=== PATIENT | female | born 1950 | race Hispanic/Latino ===

== ENCOUNTER 2017-10-27 06:57 | Outpatient (CLI) | payer MEDICARE ==
--- NOTE | 2017-10-27 08:43 | Fluoroscopy Report ---
FLUORO UPPER GI WITH AIR WITH KUB INDICATION: Dysphagia oropharyngeal phase. Difficulty swallowing. Food gets stuck about mid chest. COMPARISON: None similar. IMAGES/CINE CLIPS: 34 FINDINGS: Upper GI exam performed. Patient swallowed thick and thin barium and tolerated effervescent granules with some difficulty. Furnace Combination Analyst radiograph demonstrates multilevel spinal degenerative changes, possible bony demineralization and atherosclerotic aortoiliac calcifications. Proximal one third esophageal dilatation noted leading to marked irregularity of the middle third, approximately 10 cm length of the esophagus about the level of the hilum. Some contrast though passes beyond this region into a normal caliber distal third esophagus. Normal GE junction without demonstrable hiatal hernia or gastroesophageal reflux. Contrast passes through into the stomach that demonstrates limited distention and slight exaggerated mucosal thickening. Normal duodenum bulb and the C-loop. CONCLUSION: 1. Abnormal exam with dilated proximal esophagus and approximately 10 cm mid esophageal marked mucosal irregularity/luminal compromise, primarily worrisome for underlying mid esophageal mass/neoplasm versus encasement/invasion from a surrounding hilar/mediastinal mass. Please correlate. Chest CT with contrast and/or endoscopy would be further informative, as warranted. 2. Few other findings, as above. Thank you for the opportunity to participate in this patient's care.
== END 2017-10-27 06:58 | disposition home or self-care (01) ==
LOC: FLUORO 06:57
PROVIDERS: ATTEND Internal Medicine
DX: R13.12 Dysphagia, oropharyngeal phase (principal); M46.90 Unspecified inflammatory spondylopathy, site unspecified; I10 Essential (primary) hypertension
CPT/HCPCS: 74247

== ENCOUNTER 2017-12-23 19:05 | Inpatient (IN) | payer MEDICARE ==
[2017-12-23] MEDS ORDERED: ATROVENT IH ONE ×2 (19:17→20:04)
[2017-12-23] MEDS ORDERED: PROVENTIL IH ONE ×2 (19:18→20:04)
--- NOTE | 2017-12-23 20:11 | Emergency Department Report ---
HPI - General Chief Complaint: Dyspnea/Respdistress Time Seen by Provider: 12/23/17 19:43 - HPI HPI: 67-year-old female presents to the emergency department with a complaint of some abdominal pain and shortness of breath. The patient has been dealing with some shortness of breath, chest pain and back pain for the past month or so and was diagnosed with esophageal cancer and COPD/emphysema about one month ago. The patient had chemotherapy last Tuesday. However the shortness of breath worsened today and the patient this morning developed some lower abdominal pain. She has swelling in the bilateral feet. She denies any current chest pain. She denies any fever, nausea, vomiting but does have a chronic productive cough. The patient's oncologist is Dr. Mishra through [facility] and PCP is Dr Velazquez. She is a former smoker. The patient is fed through a feeding tube. ED Past Medical Hx - Past Medical History Previous Medical History?: Yes Hx Hypertension: Yes (takes calcium channel cedric and CHIQUITA inhibitor) Hx of Cancer: Yes (Esophageal) Hx COPD: Yes Hx HIV: No Additional medical history: OSTEOARTHRITIS - Social History Smoking Status: Former Smoker Substance Use Type: None - Medications Home Medications: Home Medications Medication Instructions Recorded Confirmed Last Taken Type Alendronate Sodium [Fosamax] 70 mg PO QWEEK 03/29/14 03/29/14 03/25/14 20:00 History Amlodipine Bes/Olmesartan Med 1 tab PO DAILY 03/29/14 03/29/14 03/29/14 08:00 History [Jeffery 10-20 mg] Lisinopril 10 mg PO BID 03/29/14 03/29/14 03/29/14 08:00 History Carvedilol [Coreg] 3.125 mg PO 12/23/17 Unknown History HYDROcodone/ACETAMINOPHEN 1 each PO 12/23/17 12/23/17 History [Hydrocodone-Acetamin 10-325 mg] Morphine ER [Ms Contin ER] 30 mg PO 12/23/17 12/23/17 History Sucralfate [Carafate] 1 gm PO 12/23/17 Unknown History ED Review of Systems ROS: Stated complaint: DIFFICULTY BREATHING Other details as noted in HPI Comment: All other systems reviewed and negative Constitutional: denies: chills, fever Eyes: denies: eye pain, eye discharge, vision change ENT: denies: ear pain, throat pain Respiratory: cough, shortness of breath Cardiovascular: edema. denies: chest pain Gastrointestinal: abdominal pain. denies: diarrhea Genitourinary: denies: urgency, dysuria, discharge Musculoskeletal: denies: joint swelling, arthralgia Skin: denies: rash, lesions Neurological: denies: headache, numbness Physical Exam - Physical Exam Vital Signs: Vital Signs 12/23/17 12/23/17 12/23/17 19:16 19:30 19:31 Temperature 97.6 F Pulse Rate 108 H Pulse Rate [ 95 H Anterior] Respiratory 29 H 29 H Rate Respiratory 25 H Rate [Anterior] Blood Pressure 156/79 145/69 Blood Pressure 156/79 [Right] O2 Sat by Pulse 94 94 Oximetry Physical Exam: GENERAL: The patient is well-developed well-nourished. HENT: Normocephalic. Atraumatic. Patient has moist mucous membranes. EYES: Extraocular motions are intact. Pupils equal reactive to light bilaterally. NECK: Supple. Trachea is midline. CHEST/LUNGS: There is some rhonchi heard at the bases. There is some mild wheezing throughout the chest. A productive cough heard during examination. Mild tachypnea but no accessory muscle use. There is no respiratory distress noted. HEART/CARDIOVASCULAR: Regular. There is mild tachycardia. There is no murmur. ABDOMEN: Abdomen is soft, nontender. Patient has normal bowel sounds. There is no abdominal distention. SKIN: Skin is warm and dry. There is some nonpitting swelling to the bilateral feet. NEURO: The patient is awake, alert, and oriented. The patient is cooperative. The patient has no focal neurologic deficits. The patient has normal speech. MUSCULOSKELETAL: There is no tenderness or deformity. There is no limitation range of motion. There is no evidence of acute injury. ED Course Vital Signs 12/23/17 12/23/17 12/23/17 19:16 19:30 19:31 Temperature 97.6 F Pulse Rate 108 H Pulse Rate [ 95 H Anterior] Respiratory 29 H 29 H Rate Respiratory 25 H Rate [Anterior] Blood Pressure 156/79 145/69 Blood Pressure 156/79 [Right] O2 Sat by Pulse 94 94 Oximetry ED Medical Decision Making - Lab Data Result diagrams: 12/23/17 20:03 12/23/17 20:03 - EKG Data -: EKG Interpreted by Me EKG shows normal: sinus rhythm, axis, intervals, QRS complexes (Q waves to the septal leads), ST-T waves Rate: tachycardia (103 bpm) - EKG Data When compared to previous EKG there are: previous EKG unavailable Interpretation: other (sinus tachycardia at 103 bpm, Q waves to the septal leads ) - Radiology Data Radiology results: report reviewed, image reviewed interpreted by me: X-ray shows the esophageal stent in place. There is an infiltrate to the right lower lobe concerning for pneumonia. EXAM: CT ABDOMEN PELVIS WO CON HISTORY: abd pain TECHNIQUE: Routine axial imaging was obtained of the abdomen and pelvis without oral or IV contrast. Sagittal and coronal reconstructions were reviewed. FINDINGS: The study is limited without IV contrast. There are extensive infiltrates involving the right lower lobe and right middle lobe with bilateral pleural effusions. There is a stent in the distal esophagus. There is [id number] ascites. The liver appears mildly enlarged. The gallbladder and biliary tree appear normal. The pancreas is not well seen. The spleen and adrenal glands appear normal. The kidneys show no evidence of stones or hydronephrosis. There calcification of the abdominal aorta. The bowel loops are not distended. There is radiopaque material in the colon which is of uncertain etiology. The bladder is distended. The uterus appears normal. The appendix is not seen. The skeletal structures reveal arthritic changes lumbar spine. There also a gastrostomy tube in good position in the stomach. IMPRESSION: Extensive pneumonia involving the right lower lobe and right middle lobe with bilateral pleural effusions. Ascites. No definite acute process in the abdomen and pelvis. Distended urinary bladder. Arthritic changes in the lumbar spine. Transcribed By: RB Dictated By: CORY MURRAY MD Electronically Authenticated By: CORY MURRAY MD Signed Date/Time: 12/24/17 0024 - Medical Decision Making This patient presents with worsening shortness of breath and some abdominal pain that has since improved or resolved. Patient does have some mild hypoxia upon arrival but does have a recent diagnosis of COPD/emphysema. She was placed on oxygen via nasal cannula and given a long breathing treatment with some improvement. Lung sounds show rhonchi at the bases and some wheezing throughout the lungs. Blood culture sent and the patient was started on antibiotics. X-ray of the chest shows right lower lobe infiltrate concerning for pneumonia. The patient is articulate and Lovenox injections twice daily and therefore she was low suspicion for pulmonary embolism. A CT of the abdomen and pelvis was later done that shows extensive right lower and middle lobe pneumonia with some bilateral pleural effusions. There is some mild ascites but no definite or acute process of the abdomen or pelvis. Patient has elevated troponin level. The first one was 0.031 and she was given aspirin. The second troponin came back at 0.087 and I have added a cardiology consultation regarding her elevated troponin. The patient was accepted for admission by the hospitalist, Dr. Baker. - Differential Diagnosis pneumonia, COPD exacerbation, UT, malignancy Critical Care Time: No Critical care attestation.: If time is entered above; I have spent that time in minutes in the direct care of this critically ill patient, excluding procedure time. ED Disposition Clinical Impression: Elevated troponin Dyspnea Qualifiers: Dyspnea type: shortness of breath Qualified Code(s): R06.02 - Shortness of breath; R06.00 - Dyspnea, unspecified; R06.01 - Orthopnea Pneumonia Qualifiers: Pneumonia type: due to unspecified organism Laterality: right Lung location: lower lobe of lung Qualified Code(s): J18.1 - Lobar pneumonia, unspecified organism Leukocytosis Qualifiers: Leukocytosis type: unspecified Qualified Code(s): D72.829 - Elevated white blood cell count, unspecified Anemia Qualifiers: Anemia type: unspecified type Qualified Code(s): D64.9 - Anemia, unspecified Disposition: OP ADMIT IP TO THIS HOSP Is pt being admited?: Yes Condition: Serious Time of Disposition: 00:55
[2017-12-23 20:24] LABS: INR 1.01 (0.87-1.13)
[2017-12-23 20:25] LABS: Partial Thromboplastin Time 31.3 Sec. (24.2-36.6)
[2017-12-23 20:29] LABS: Alanine Aminotransferase 28 units/L (7-56); Albumin 2.4 g/dL (3.9-5); BUN/Creatinine Ratio 55; Blood Urea Nitrogen 11 mg/dL (7-17); Calcium 7.6 mg/dL (8.4-10.2); Hemolysis Index 0
--- NOTE | 2017-12-23 21:04 | XRay Report ---
FINAL REPORT PROCEDURE: XR CHEST 1V AP TECHNIQUE: Chest radiograph anteroposterior view. CPT 92318 HISTORY: Chest Pain COMPARISON: No prior studies are available for comparison. FINDINGS: Heart: Mild enlargement. Mediastinum/Vessels: Esophageal stent in the mediastinum. Lungs/Pleural space: Right lower lung airspace consolidation. Small left pleural effusion. Bony thorax: No acute osseous abnormality. Prior right rib fractures. Life support devices: Port on the right extends to the mid superior vena cava.. IMPRESSION: Right lower lung infiltrate.
[2017-12-23 21:11] LABS: HDL Cholesterol 27 mg/dL (40-59); LDL Cholesterol,Direct 52 mg/dL (50-130)
[2017-12-23 21:12] LABS: Hematocrit 27.2 % (30.3-42.9); Hemoglobin 9.2 gm/dl (10.1-14.3); Mean Corpuscular HGB Conc 34 % (30-34); Mean Corpuscular Hemoglobin 31 pg (28-32); Mean Corpuscular Volume 92 fl (79-97); Platelet Count 359 K/mm3 (140-440); Red Blood Count 2.96 M/mm3 (3.65-5.03)
[2017-12-23] MEDS ORDERED: BABY ASPIRIN PO ONE (21:25)
[2017-12-23] MEDS ORDERED: LEVAQUIN 750MG/150ML 750 MG/150 ML BAG IV ONE (21:25)
[2017-12-23 21:45] LABS: Basophils % (Manual) 0 % (0.0-1.8); Eosinophils % (Manual) 0 % (0.0-4.3); RBC Morphology Normal; Total Cells Counted 100
[2017-12-23] MEDS ORDERED: PERCOCET 5/325 ONE (22:20)
[2017-12-23] MEDS ORDERED: PERCOCET 5/325 PO ONE (22:20)
[2017-12-23] MEDS ORDERED: NORCO 10/325 ONE (22:43)
[2017-12-23] MEDS ORDERED: NORCO 10/325 FEEDTUBE ONE (22:43)
[2017-12-23] MEDS ORDERED: SODIUM CHLORIDE FLUSH SYRINGE 10 ML IV PRN (22:46)
[2017-12-23] MEDS ORDERED: TYLENOL PO PRN (22:46)
[2017-12-23] MEDS ORDERED: ZOFRAN IV PRN (22:46)
[2017-12-23] MEDS ORDERED: APRESOLINE IV PRN (22:51)
--- NOTE | 2017-12-23 22:53 | History and Physical Report ---
History of Present Illness Date of examination: 12/23/17 History of present illness: This is a 58-year-old woman with a history of esophageal cancer, COPD, hypertension, GERD discussed emergency room with complaints of shortness of breath that started on Tuesday, cough productive of brown phlegm. She also complaining of abdominal pain in the lower abdomen which she described as a heavy sensation, constant, intensity/10, no radiation, she can identify exacerbating or relieving factors Review of systems Constitutional: no weight loss, chills, fever Ears, eyes, nose, mouth and throat: no nasal congestion, no nasal discharge, no sinus pressure, no vision change, no red eye. Neck: No neck pain or rigidity. Cardiovascular: no chest pain, palpitations Respiratory: no cough, shortness of breath Gastrointestinal: no hematochezia Genitourinary : no frequency , no hematuria Musculoskeletal: no joint swelling or muscle ache Integumentary: no rash, no pruritis Neurological: no parathesias, no numbness, no focal weakness Endocrine: no cold or heat intolerance, no polyuria or polydipsia Hematologic/Lymphatic: no easy bruising, no easy bleeding, no gland swelling Allergic/Immunologic: no urticaria, no angioedema. PAST MEDICAL HISTORY: esophageal cancer, COPD, hypertension, GERD PAST SURGICAL HISTORY: none SOCIAL HISTORY: No alcohol, no drugs, tobacco FAMILY HISTORY: Hypertension Medications and Allergies Allergies Allergy/AdvReac Type Severity Reaction Status Date / Time No Known Allergies Allergy Verified 03/29/14 11:00 Home Medications Medication Instructions Recorded Confirmed Last Taken Type Alendronate Sodium [Fosamax] 70 mg PO QWEEK 03/29/14 03/29/14 03/25/14 20:00 History Amlodipine Bes/Olmesartan Med 1 tab PO DAILY 03/29/14 03/29/14 03/29/14 08:00 History [Jeffery 10-20 mg] Lisinopril 10 mg PO BID 03/29/14 03/29/14 03/29/14 08:00 History Carvedilol [Coreg] 3.125 mg PO 12/23/17 Unknown History HYDROcodone/ACETAMINOPHEN 1 each PO 12/23/17 12/23/17 History [Hydrocodone-Acetamin 10-325 mg] Morphine ER [Ms Contin ER] 30 mg PO 12/23/17 12/23/17 History Sucralfate [Carafate] 1 gm PO 12/23/17 Unknown History Active Meds: Active Medications Acetaminophen (Tylenol) 650 mg PO Q4H PRN PRN Reason: Pain MILD(1-3)/Fever >100.5/MORALES Albuterol (Proventil) 2.5 mg IH Q3HRT PRN PRN Reason: Shortness Of Breath Hydralazine HCl (Apresoline) 5 mg IV Q6HR PRN PRN Reason: Hypertension Levofloxacin/Dextrose (Levaquin 750mg/150ml) 750 mg in 150 mls @ 100 mls/hr IV ONCE ONE Stop: 12/23/17 22:54 Last Admin: 12/23/17 22:47 Dose: 100 mls/hr Sodium Chloride (Nacl 0.9% 1000 Ml) 1,000 mls @ 100 mls/hr IV DIRECT ELDA Ondansetron HCl (Zofran) 4 mg IV Q4H PRN PRN Reason: Nausea And Vomiting Sodium Chloride (Sodium Chloride Flush Syringe 10 Ml) 10 ml IV BID ELDA Sodium Chloride (Sodium Chloride Flush Syringe 10 Ml) 10 ml IV PRN PRN PRN Reason: LINE FLUSH Exam - Physical Exam Narrative exam: Gen. appearance: Patient lying in bed, no apparent distress HEENT: Normocephalic, atraumatic, pupils equally round and reactive to light, extraocular movement intact, and no sclericterus,. No JVD or thyromegaly or nodule,neck supple, no carotid bruit ,mucous membranes moist, no exudate or erythema Heart: S1, S2, regular rate and rhythm Lungs: Clear bilaterally, breathing comfortable Abdomen: Positive bowel sounds, non-tender, nondistended, no organomegaly Extremity:no edema cyanosis, clubbing Skin: no rash, dry, warm Neuro: Oriented 3, cranial nerves II-12 intact, speech is fluent, motor and sensory intact - Constitutional Vitals: Temp Pulse Resp BP Pulse Ox 97.6 F 86 18 156/79 94 12/23/17 19:31 12/23/17 21:04 12/23/17 21:04 12/23/17 19:31 12/23/17 19:31 Results - Labs CBC & Chem 7: 12/23/17 20:03 12/23/17 20:03 Labs: Abnormal lab results 12/23/17 12/23/17 Range/Units 20:03 20:03 WBC 26.0 H (4.5-11.0) K/mm3 RBC 2.96 L (3.65-5.03) M/mm3 Hgb 9.2 L (10.1-14.3) gm/dl Hct 27.2 L (30.3-42.9) % Seg Neuts % (Manual) 97.0 H (40.0-70.0) % Lymphocytes % (Manual) 2.0 L (13.4-35.0) % Seg Neutrophils # Man 25.2 H (1.8-7.7) K/mm3 Lymphocytes # (Manual) 0.5 L (1.2-5.4) K/mm3 Sodium 122 L (137-145) mmol/L Chloride 86.1 L (98-107) mmol/L Creatinine 0.2 L (0.7-1.2) mg/dL Glucose 137 H (65-100) mg/dL Calcium 7.6 L (8.4-10.2) mg/dL Troponin T 0.031 H (0.00-0.029) ng/mL Total Protein 5.2 L (6.3-8.2) g/dL Albumin 2.4 L (3.9-5) g/dL HDL Cholesterol 27 L (40-59) mg/dL - Imaging and Cardiology Chest x-ray: report reviewed Assessment and Plan Assessment Sepsis Pneumonia Abdominal pain Abnormal cardiac enzymes Hyponatremia Hypertension COPD History of IJ clot History of esophageal cancer Plan Admit to medicine started IV fluid, Levaquin, follow cultures Check cardiac enzymes, CAT scan abdomen and pelvis Follow sodium level DVT prophylaxis
[2017-12-23] MEDS ORDERED: NORCO 10/325 PO PRN (23:45)
[2017-12-23 23:53] LABS: Creatine Kinase MB 3.2 ng/mL (0.0-4.0)
--- NOTE | 2017-12-24 00:26 | Cat Scan Report ---
FINAL REPORT EXAM: CT ABDOMEN PELVIS WO CON HISTORY: abd pain TECHNIQUE: Routine axial imaging was obtained of the abdomen and pelvis without oral or IV contrast. Sagittal and coronal reconstructions were reviewed. FINDINGS: The study is limited without IV contrast. There are extensive infiltrates involving the right lower lobe and right middle lobe with bilateral pleural effusions. There is a stent in the distal esophagus. There is [id number] ascites. The liver appears mildly enlarged. The gallbladder and biliary tree appear normal. The pancreas is not well seen. The spleen and adrenal glands appear normal. The kidneys show no evidence of stones or hydronephrosis. There calcification of the abdominal aorta. The bowel loops are not distended. There is radiopaque material in the colon which is of uncertain etiology. The bladder is distended. The uterus appears normal. The appendix is not seen. The skeletal structures reveal arthritic changes lumbar spine. There also a gastrostomy tube in good position in the stomach. IMPRESSION: Extensive pneumonia involving the right lower lobe and right middle lobe with bilateral pleural effusions. Ascites. No definite acute process in the abdomen and pelvis. Distended urinary bladder. Arthritic changes in the lumbar spine.
[2017-12-24] MEDS: COREG PO SCH ×3 (01:38→22:23)
[2017-12-24] MEDS: MS CONTIN ER PO SCH ×3 (01:38→22:23)
[2017-12-24] MEDS: NACL 0.9% 1000 ML 1,000 ML IV SCH (01:38)
[2017-12-24] MEDS: PROVENTIL IH PRN ×2 (02:28→23:30)
[2017-12-24 07:32] LABS: Hematocrit 31.3 % (30.3-42.9); Hemoglobin 10.3 gm/dl (10.1-14.3); Mean Corpuscular HGB Conc 33 % (30-34); Mean Corpuscular Hemoglobin 30 pg (28-32); Mean Corpuscular Volume 92 fl (79-97); Platelet Count 367 K/mm3 (140-440); Red Blood Count 3.41 M/mm3 (3.65-5.03); Red Cell Distribution Width 14.9 % (13.2-15.2)
[2017-12-24 07:51] LABS: BUN/Creatinine Ratio 50; Blood Urea Nitrogen 10 mg/dL (7-17); Calcium 8.2 mg/dL (8.4-10.2); Hemolysis Index 0
[2017-12-24 07:56] LABS: Creatine Kinase MB 3.7 ng/mL (0.0-4.0)
[2017-12-24] MEDS: DUONEB *Not for PRN Use IH SCH ×4 (10:17→19:53)
[2017-12-24 10:31] LABS: Basophils % (Manual) 0 % (0.0-1.8); Eosinophils % (Manual) 0 % (0.0-4.3); Monocytes % (Manual) 0 % (0.0-7.3); Total Cells Counted 100
[2017-12-24 10:32] LABS: Platelet Estimate Consistent w Auto; RBC Morphology Normal
[2017-12-24] MEDS: ZESTRIL PO SCH ×2 (11:17→22:23)
--- NOTE | 2017-12-24 11:25 | Consultation ---
History of Present Illness Consult date: 12/24/17 Requesting physician: COURTNEY LIND Consult reason: elevated troponin History of present illness: The patient was diagnosed with advanced esophageal cancer about 4 weeks ago. She recently commenced chemotherapy. Yesterday, she developed progressive shortness of breath associated with cough productive of brownish sputum. She denies chest pain. Her chest x-ray revealed right lower lobe infiltrate. Troponin is mildly elevated. Past History Past Medical History: cancer (advanced esophageal cancer), COPD, hypertension Past Surgical History: No surgical history Social history: , other (social drinking). denies: smoking Family history: denies: CAD Medications and Allergies Allergies Allergy/AdvReac Type Severity Reaction Status Date / Time No Known Allergies Allergy Verified 03/29/14 11:00 Home Medications Medication Instructions Recorded Confirmed Last Taken Type Alendronate Sodium [Fosamax] 70 mg PO QWEEK 03/29/14 03/29/14 03/25/14 20:00 History Amlodipine Bes/Olmesartan Med 1 tab PO DAILY 03/29/14 03/29/14 03/29/14 08:00 History [Jeffery 10-20 mg] Lisinopril 10 mg PO BID 03/29/14 03/29/14 03/29/14 08:00 History Carvedilol [Coreg] 3.125 mg PO 12/23/17 Unknown History HYDROcodone/ACETAMINOPHEN 1 each PO 12/23/17 12/23/17 History [Hydrocodone-Acetamin 10-325 mg] Morphine ER [Ms Contin ER] 30 mg PO 12/23/17 12/23/17 History Sucralfate [Carafate] 1 gm PO 12/23/17 Unknown History Enoxaparin [Lovenox] 40 mg SQ Q12HR 12/24/17 12/24/17 2 Days Ago History ~12/22/17 Active Meds: Active Medications Acetaminophen (Tylenol) 650 mg PO Q4H PRN PRN Reason: Pain MILD(1-3)/Fever >100.5/MORALES Albuterol (Proventil) 2.5 mg IH Q3HRT PRN PRN Reason: Shortness Of Breath Last Admin: 12/24/17 02:28 Dose: 2.5 mg Albuterol/Ipratropium (Duoneb *Not For Prn Use*) 1 ampul IH QIDRT ELDA Last Admin: 12/24/17 10:17 Dose: 1 ampul Carvedilol (Coreg) 3.125 mg PO Q12HR [facility] Last Admin: 12/24/17 01:38 Dose: 3.125 mg Hydralazine HCl (Apresoline) 5 mg IV Q6HR PRN PRN Reason: Hypertension Sodium Chloride (Nacl 0.9% 1000 Ml) 1,000 mls @ 75 mls/hr IV DIRECT [facility] Last Admin: 12/24/17 01:38 Dose: 75 mls/hr Lisinopril (Zestril) 10 mg PO BID [facility] Morphine Sulfate (Ms Contin Er) 30 mg PO Q12HR [facility] Last Admin: 12/24/17 01:38 Dose: 30 mg Ondansetron HCl (Zofran) 4 mg IV Q4H PRN PRN Reason: Nausea And Vomiting Sodium Chloride (Sodium Chloride Flush Syringe 10 Ml) 10 ml IV BID [facility] Sodium Chloride (Sodium Chloride Flush Syringe 10 Ml) 10 ml IV PRN PRN PRN Reason: LINE FLUSH Review of Systems Constitutional: no fever, no chills Ears, nose, mouth and throat: no ear pain, no ear discharge, no sore throat Cardiovascular: shortness of breath, no chest pain, no palpitations Respiratory: cough with sputum, shortness of breath Gastrointestinal: no abdominal pain, no nausea, no vomiting, no diarrhea, no constipation Genitourinary Female: no dysuria, no urinary frequency Rectal: no pain, no bleeding Musculoskeletal: no neck stiffness, no neck pain, no myalgias Integumentary: no rash, no pruritis Neurological: no weakness, no parathesias, no headaches Endocrine: no cold intolerance, no heat intolerance Hematologic/Lymphatic: no easy bruising, no easy bleeding Allergic/Immunologic: wheezing, no urticaria Physical Examination Vital Signs Last Vital Signs Temp 98.5 F 12/24/17 08:11 Pulse 88 12/24/17 10:23 Resp 18 12/24/17 10:23 BP 138/62 12/24/17 08:11 Pulse Ox 94 12/24/17 09:51 General appearance: mild distress HEENT: Positive: EOMI, Normocephaly, Mucus Membranes Moist Neck: Positive: neck supple, trachea midline Cardiac: Positive: Reg Rate and Rhythm, S1/S2 Lungs: Positive: Wheezes, Rhonchi Neuro: Positive: Grossly Intact Abdomen: Positive: Soft, Active Bowel Sounds. Negative: Tender Skin: Positive: Clear. Negative: Rash Extremities: Present: +1 Edema (bilateral leg edenma) Results 12/24/17 06:58 12/24/17 06:58 Cardiac Enzymes 12/23/17 12/23/17 12/24/17 Range/Units 20:03 23:09 06:58 AST 16 (5-40) units/L CK-MB (CK-2) 3.2 3.7 (0.0-4.0) ng/mL Coagulation 12/23/17 Range/Units 20:03 PT 13.8 (12.2-14.9) Sec. INR 1.01 (0.87-1.13) APTT 31.3 (24.2-36.6) Sec. Lipids 12/23/17 Range/Units 20:03 Triglycerides 83 (2-149) mg/dL Cholesterol 92 (50-199) mg/dL HDL Cholesterol 27 L (40-59) mg/dL Cholesterol/HDL Ratio 3.40 % CBC 12/23/17 12/24/17 Range/Units 20:03 06:58 WBC 26.0 H 23.3 H (4.5-11.0) K/mm3 RBC 2.96 L 3.41 L (3.65-5.03) M/mm3 Hgb 9.2 L 10.3 (10.1-14.3) gm/dl Hct 27.2 L 31.3 (30.3-42.9) % Plt Count 359 367 (140-440) K/mm3 Comprehensive Metabolic Panel 12/23/17 12/24/17 Range/Units 20:03 06:58 Sodium 122 L 128 L (137-145) mmol/L Potassium 3.9 5.1 H D (3.6-5.0) mmol/L Chloride 86.1 L 90.9 L (98-107) mmol/L Carbon Dioxide 28 26 (22-30) mmol/L BUN 11 10 (7-17) mg/dL Creatinine 0.2 L 0.2 L (0.7-1.2) mg/dL Glucose 137 H 106 H (65-100) mg/dL Calcium 7.6 L 8.2 L (8.4-10.2) mg/dL AST 16 (5-40) units/L ALT 28 (7-56) units/L Alkaline Phosphatase 117 (35-129) units/L Total Protein 5.2 L (6.3-8.2) g/dL Albumin 2.4 L (3.9-5) g/dL - Imaging and Cardiology EKG: image reviewed EKG interpretations - Telemetry EKG Rhythm: Sinus Tachycardia - EKG Sinus rhythms and dysrhythmias: sinus tachycardia Myocardial infarction: septal MD (old age or ind Assessment and Plan Her troponin elevation is nonspecific. Moreover, she is not a candidate for invasive cardiac evaluation. Obtain echocardiogram. - Patient Problems (1) Pneumonia Current Visit: Yes Status: Acute Qualifiers: Pneumonia type: due to unspecified organism Laterality: right Lung location: lower lobe of lung Qualified Code(s): J18.1 - Lobar pneumonia, unspecified organism (2) COPD exacerbation Current Visit: Yes Status: Acute (3) Elevated troponin Current Visit: Yes Status: Acute (4) Esophageal cancer Current Visit: Yes Status: Chronic (5) Hypertension Current Visit: Yes Status: Chronic Qualifiers: Hypertension type: essential hypertension Qualified Code(s): I10 - Essential (primary) hypertension
--- NOTE | 2017-12-24 14:48 | Progress Note ---
Assessment and Plan Assessment and plan: Patient is a 58 woman with a history of esophageal Cancer on Chemotherapy ( finished this week) with PEG tube feeding but takes clear liquid diet with meds , End stage COPD, osteoporosis, hypertension and GERD who presents to [facility] ED with abdominal pains due to severe productive cough and SOB * CT abd/pelvis wo contrast IMPRESSION: Extensive pneumonia involving the right lower lobe and right middle lobe with bilateral pleural effusions. Ascites. No definite acute process in the abdomen and pelvis. Distended urinary bladder. Arthritic changes in the lumbar spine. * pCXR IMPRESSION: Right lower lung infiltrate. Sepsis due to Pneumonia, poa: treat with abx, follow culture which are growing GPC, will start IV Vancomycin with close monitoring Aspiration RML and RLL Pneumonia, poa: treat with dual IV abx Acute hypoxic respiratory failure on 5 liters of O2 (new to O2), poa: treat with O2, with daily weaning attempts, add DuoNebs Abdominal pains with new onset Ascites, ?portal hypertension from esophageal stenosis (s/p stent, vague history): consult GI Abnormal cardiac enzymes with elevated troponin: d/w Cardiology, Dr. 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 Follow-up on current diagnosis cough, sob. Overnight uneventful. Patient denies any nausea/vomiting or severe headaches. Imaging, nursing note, chart, labs and old chart reviewed. Discussed with patient. Hospitalist Physical - Physical exam Narrative exam: GEN: cachetic, bmi 15.5 ill appearing, mild increase accessory muscles, Awake, Alert, Orientated x 3 HEENT: NCAT, EOMI, PERRL, OP Clear and dry NECK: supple, no adenopathy, no thyromegaly, no JVD CVS/HEART: RRR, normal S1S2, pulses present bilaterally CHEST/LUNGS: coarse bs bilateral, Symmetrical chest expansion, diminished air entry bilaterally GI/Abdomen: soft, NT, mild distended, +PEG in place, good bowel sounds, no guarding or rebound /Bladder: no suprapubic tenderness, no CVA or paraspinal tenderness EXT/Skin: no obvious rash MSK: FROM x 4 Neuro: CN 2-12 grossly intact, no new focal deficits Psych: anxious - Constitutional Vitals: Temp Pulse Resp BP Pulse Ox 98.5 F 73 19 131/66 92 12/24/17 08:11 12/24/17 12:22 12/24/17 12:29 12/24/17 11:17 12/24/17 11:17 General appearance: Absent: mild distress Results - Labs CBC & Chem 7: 12/24/17 06:58 12/24/17 06:58 Labs: Laboratory Last Values WBC 23.3 K/mm3 (4.5-11.0) H 12/24/17 06:58 RBC 3.41 M/mm3 (3.65-5.03) L 12/24/17 06:58 Hgb 10.3 gm/dl (10.1-14.3) 12/24/17 06:58 Hct 31.3 % (30.3-42.9) 12/24/17 06:58 MCV 92 fl (79-97) 12/24/17 06:58 MCH 30 pg (28-32) 12/24/17 06:58 MCHC 33 % (30-34) 12/24/17 06:58 RDW 14.9 % (13.2-15.2) 12/24/17 06:58 Plt Count 367 K/mm3 (140-440) 12/24/17 06:58 Add Manual Diff Complete 12/24/17 06:58 Total Counted 100 12/24/17 06:58 Seg Neutrophils % Electrical Engineering Manager 12/24/17 06:58 Seg Neuts % (Manual) 100.0 % (40.0-70.0) H 12/24/17 06:58 Band Neutrophils % 0 % 12/24/17 06:58 Lymphocytes % (Manual) 0 % (13.4-35.0) L 12/24/17 06:58 Reactive Lymphs % (Man) 0 % 12/24/17 06:58 Monocytes % (Manual) 0 % (0.0-7.3) 12/24/17 06:58 Eosinophils % (Manual) 0 % (0.0-4.3) 12/24/17 06:58 Basophils % (Manual) 0 % (0.0-1.8) 12/24/17 06:58 Metamyelocytes % 0 % 12/24/17 06:58 Myelocytes % 0 % 12/24/17 06:58 Promyelocytes % 0 % 12/24/17 06:58 Blast Cells % 0 % 12/24/17 06:58 Nucleated RBC % Not Reportable 12/24/17 06:58 Seg Neutrophils # Man 23.3 K/mm3 (1.8-7.7) H 12/24/17 06:58 Band Neutrophils # 0.0 K/mm3 12/24/17 06:58 Lymphocytes # (Manual) 0.0 K/mm3 (1.2-5.4) L 12/24/17 06:58 Abs React Lymphs (Man) 0.0 K/mm3 12/24/17 06:58 Monocytes # (Manual) 0.0 K/mm3 (0.0-0.8) 12/24/17 06:58 Eosinophils # (Manual) 0.0 K/mm3 (0.0-0.4) 12/24/17 06:58 Basophils # (Manual) 0.0 K/mm3 (0.0-0.1) 12/24/17 06:58 Metamyelocytes # 0.0 K/mm3 12/24/17 06:58 Myelocytes # 0.0 K/mm3 12/24/17 06:58 Promyelocytes # 0.0 K/mm3 12/24/17 06:58 Blast Cells # 0.0 K/mm3 12/24/17 06:58 WBC Morphology Not Reportable 12/24/17 06:58 Hypersegmented Neuts Not Reportable 12/24/17 06:58 Hyposegmented Neuts Not Reportable 12/24/17 06:58 Hypogranular Neuts Not Reportable 12/24/17 06:58 Smudge Cells Not Reportable 12/24/17 06:58 Toxic Granulation Not Reportable 12/24/17 06:58 Toxic Vacuolation Not Reportable 12/24/17 06:58 Dohle Bodies Not Reportable 12/24/17 06:58 Pelger-Huet Anomaly Not Reportable 12/24/17 06:58 Mc Rods Not Reportable 12/24/17 06:58 Platelet Estimate Consistent w auto 12/24/17 06:58 Clumped Platelets Not Reportable 12/24/17 06:58 Plt Clumps, EDTA Not Reportable 12/24/17 06:58 Large Platelets Not Reportable 12/24/17 06:58 Giant Platelets Not Reportable 12/24/17 06:58 Platelet Satelliting Not Reportable 12/24/17 06:58 Plt Morphology Comment Not Reportable 12/24/17 06:58 RBC Morphology Normal 12/24/17 06:58 Dimorphic RBCs Not Reportable 12/24/17 06:58 Polychromasia Not Reportable 12/24/17 06:58 Hypochromasia Not Reportable 12/24/17 06:58 Poikilocytosis Not Reportable 12/24/17 06:58 Anisocytosis Not Reportable 12/24/17 06:58 Microcytosis Not Reportable 12/24/17 06:58 Macrocytosis Not Reportable 12/24/17 06:58 Spherocytes Not Reportable 12/24/17 06:58 Pappenheimer Bodies Not Reportable 12/24/17 06:58 Sickle Cells Not Reportable 12/24/17 06:58 Target Cells Not Reportable 12/24/17 06:58 Tear Drop Cells Not Reportable 12/24/17 06:58 Ovalocytes Not Reportable 12/24/17 06:58 Helmet Cells Not Reportable 12/24/17 06:58 [place] Bodies Not Reportable 12/24/17 06:58 Issue Rings Not Reportable 12/24/17 06:58 Adama Cells Not Reportable 12/24/17 06:58 Bite Cells Not Reportable 12/24/17 06:58 Crenated Cell Not Reportable 12/24/17 06:58 Elliptocytes Not Reportable 12/24/17 06:58 Acanthocytes (Spur) Not Reportable 12/24/17 06:58 Rouleaux Not Reportable 12/24/17 06:58 Hemoglobin C Crystals Not Reportable 12/24/17 06:58 Schistocytes Not Reportable 12/24/17 06:58 Malaria parasites Not Reportable 12/24/17 06:58 Matt Bodies Not Reportable 12/24/17 06:58 Hem Pathologist Commnt No 12/24/17 06:58 PT 13.8 Sec. (12.2-14.9) 12/23/17 20:03 INR 1.01 (0.87-1.13) 12/23/17 20:03 APTT 31.3 Sec. (24.2-36.6) 12/23/17 20:03 Sodium 128 mmol/L (137-145) L 12/24/17 06:58 Potassium 5.1 mmol/L (3.6-5.0) H D 12/24/17 06:58 Chloride 90.9 mmol/L (98-107) L 12/24/17 06:58 Carbon Dioxide 26 mmol/L (22-30) 12/24/17 06:58 Anion Gap 16 mmol/L 12/24/17 06:58 BUN 10 mg/dL (7-17) 12/24/17 06:58 Creatinine 0.2 mg/dL (0.7-1.2) L 12/24/17 06:58 Estimated GFR > 60 ml/min 12/24/17 06:58 BUN/Creatinine Ratio 50 % 12/24/17 06:58 Glucose 106 mg/dL (65-100) H 12/24/17 06:58 Calcium 8.2 mg/dL (8.4-10.2) L 12/24/17 06:58 Total Bilirubin 0.40 mg/dL (0.1-1.2) 12/23/17 20:03 AST 16 units/L (5-40) 12/23/17 20:03 ALT 28 units/L (7-56) 12/23/17 20:03 Alkaline Phosphatase 117 units/L (35-129) 12/23/17 20:03 Total Creatine Kinase 23 units/L (30-135) L 12/24/17 06:58 CK-MB (CK-2) 3.7 ng/mL (0.0-4.0) 12/24/17 06:58 CK-MB (CK-2) Rel Index 16.0 (0-4) H 12/24/17 06:58 Troponin T 0.049 ng/mL (0.00-0.029) H D 12/24/17 06:58 NT-Pro-B Natriuret Pep 819.6 pg/mL (0-900) 12/23/17 20:03 Total Protein 5.2 g/dL (6.3-8.2) L 12/23/17 20:03 Albumin 2.4 g/dL (3.9-5) L 12/23/17 20:03 Albumin/Globulin Ratio 0.9 % 12/23/17 20:03 Triglycerides 83 mg/dL (2-149) 12/23/17 20:03 Cholesterol 92 mg/dL (50-199) 12/23/17 20:03 LDL Cholesterol Direct 52 mg/dL (50-130) 12/23/17 20:03 HDL Cholesterol 27 mg/dL (40-59) L 12/23/17 20:03 Cholesterol/HDL Ratio 3.40 % 12/23/17 20:03
[2017-12-24] MEDS ORDERED: VANCOMYCIN PHARMACY TO DOSE IV SCH (15:00)
[2017-12-24] MEDS ORDERED: SIMPLE SYRUP FEEDTUBE PRN ×2 (16:01)
[2017-12-24] MEDS ORDERED: PANCREAZE DR 10,500 UNIT FEEDTUBE PRN (16:01)
[2017-12-24] MEDS ORDERED: SODIUM BICARBONATE FEEDTUBE PRN (16:01)
[2017-12-24] MEDS: VANCOMYCIN 500 MG in NACL 0.9% 100 ML IV SCH (18:48)
[2017-12-24] MEDS: ZOSYN/NS 4.5GM/100ML 4.5 GM/100 ML VIAL IV SCH ×2 (20:54→22:28)
[2017-12-24] MEDS: LOVENOX SUB-Q SCH (22:23)
[2017-12-24] MEDS: SODIUM CHLORIDE FLUSH SYRINGE 10 ML IV SCH (22:28)
[2017-12-25] MEDS: PROVENTIL IH PRN (04:34)
[2017-12-25] MEDS: ZOSYN/NS 4.5GM/100ML 4.5 GM/100 ML VIAL IV SCH ×3 (05:17→23:57)
[2017-12-25] MEDS: NACL 0.9% 1000 ML 1,000 ML IV SCH (05:17)
[2017-12-25] MEDS: VANCOMYCIN 500 MG in NACL 0.9% 100 ML IV SCH ×2 (06:13→19:09)
[2017-12-25] MEDS: DUONEB *Not for PRN Use IH SCH ×5 (08:17→23:52)
[2017-12-25] MEDS: CARDIZEM PO SCH ×3 (09:19→18:40)
[2017-12-25] MEDS: DILAUDID IV PRN (12:18)
[2017-12-25] MEDS: MS CONTIN ER PO SCH ×3 (12:19→21:19)
[2017-12-25] MEDS: SODIUM CHLORIDE FLUSH SYRINGE 10 ML IV SCH (12:26)
--- NOTE | 2017-12-25 13:05 | Progress Note ---
Assessment and Plan Change lisinopril to diltiazem due to rapid HR. Await echo. - Patient Problems (1) Pneumonia Current Visit: Yes Status: Acute Qualifiers: Pneumonia type: due to unspecified organism Laterality: right Lung location: lower lobe of lung Qualified Code(s): J18.1 - Lobar pneumonia, unspecified organism (2) COPD exacerbation Current Visit: Yes Status: Acute (3) Elevated troponin Current Visit: Yes Status: Acute (4) Esophageal cancer Current Visit: Yes Status: Chronic (5) Hypertension Current Visit: Yes Status: Chronic Qualifiers: Hypertension type: essential hypertension Qualified Code(s): I10 - Essential (primary) hypertension Subjective Date of service: 12/25/17 Principal diagnosis: pneumonia, COPD exacerbation, elevated Tn, Esophageal CA Interval history: She claims that she is breathing better today. Objective Vital Signs Temp Pulse Pulse Resp Resp BP BP 12/25/17 09:34 98.5 F 95 H 18 127/58 12/25/17 04:49 105 H 22 12/25/17 04:34 103 H 22 12/25/17 03:39 98.2 F 90 18 151/73 12/24/17 23:45 98.2 F 102 H 105 H 18 24 116/55 12/24/17 23:30 103 H 24 12/24/17 22:00 89 18 12/24/17 20:08 96 H 20 12/24/17 20:00 98.1 F 92 H 18 144/60 12/24/17 19:54 12/24/17 19:53 94 H 20 12/24/17 18:01 98.2 F 95 H 18 110/59 12/24/17 17:26 75 19 12/24/17 17:22 75 19 Pulse Ox 12/25/17 09:34 98 12/25/17 04:49 12/25/17 04:34 12/25/17 03:39 96 12/24/17 23:45 94 12/24/17 23:30 12/24/17 22:00 12/24/17 20:08 12/24/17 20:00 97 12/24/17 19:54 97 12/24/17 19:53 12/24/17 18:01 92 12/24/17 17:26 12/24/17 17:22 - Physical Examination General: No Apparent Distress HEENT: Positive: EOMI, Normocephaly, Mucus Membranes Moist Neck: Positive: neck supple, trachea midline Cardiac: Positive: Reg Rate and Rhythm, S1/S2 Lungs: Positive: Rhonchi Neuro: Positive: Grossly Intact Abdomen: Positive: Soft, Active Bowel Sounds. Negative: Tender Skin: Positive: Clear. Negative: Rash Musculoskeletal: Normal Range of Motion Extremities: Present: +1 Edema (bilateral leg edenma) - Imaging and Cardiology EKG: image reviewed - Telemetry EKG Rhythm: Sinus Tachycardia - EKG Sinus rhythms and dysrhythmias: sinus tachycardia Myocardial infarction: septal ND (old age or ind
--- NOTE | 2017-12-25 13:33 | Progress Note ---
Assessment and Plan Assessment and plan: Patient is a 58 woman with a history of esophageal Cancer on Chemotherapy ( finished this week) with PEG tube feeding but takes clear liquid diet with meds , End stage COPD, osteoporosis, hypertension and GERD who presents to [facility] ED with abdominal pains due to severe productive cough and SOB * CT abd/pelvis wo contrast IMPRESSION: Extensive pneumonia involving the right lower lobe and right middle lobe with bilateral pleural effusions. Ascites. No definite acute process in the abdomen and pelvis. Distended urinary bladder. Arthritic changes in the lumbar spine. * pCXR IMPRESSION: Right lower lung infiltrate. Sepsis due to Pneumonia, poa: treat with abx, follow culture which are growing GPC, will start IV Vancomycin with close monitoring Aspiration RML and RLL Pneumonia, poa: treat with dual IV abx Acute hypoxic respiratory failure on 5 liters of O2 (new to O2), poa: treat with O2, with daily weaning attempts, add DuoNebs Abdominal pains with new onset Ascites, ?portal hypertension from esophageal stenosis (s/p stent, vague history): consult GI Abnormal cardiac enzymes with elevated troponin: d/w Cardiology, Dr. Goss, unlikely ACS, ECHO pending Hyponatremia, severe, consider paraneoplastic syndrome: treat with IVF Hypertension: iv prn antihypertensives as needed COPD: treat with duonebs, steroids on hold due to the sepsis and immunocompromised state History of IJ clot, hypercoagable state History of esophageal cancer with PEG tube, Severe protein malnutrition, bmi 15: consult Rn Imaging DVT prophylaxis: sq lovenox Advance care planning: she wants to be full code, at bedside Echo pending History Interval history: Patient was seen and examined. Follow-up on current diagnosis cough, sob. Overnight uneventful. Patient denies any nausea/vomiting or severe headaches. Imaging, nursing note, chart, labs and old chart reviewed. Discussed with patient. Hospitalist Physical - Physical exam Narrative exam: GEN: cachetic, bmi 15.5 ill appearing, mild increase accessory muscles, Awake, Alert, Orientated x 3 HEENT: NCAT, EOMI, PERRL, OP Clear and dry NECK: supple, no adenopathy, no thyromegaly, no JVD CVS/HEART: RRR, normal S1S2, pulses present bilaterally CHEST/LUNGS: coarse bs bilateral, Symmetrical chest expansion, diminished air entry bilaterally GI/Abdomen: soft, NT, mild distended, +PEG in place, good bowel sounds, no guarding or rebound /Bladder: no suprapubic tenderness, no CVA or paraspinal tenderness EXT/Skin: no obvious rash MSK: FROM x 4 Neuro: CN 2-12 grossly intact, no new focal deficits Psych: anxious - Constitutional Vitals: Temp Pulse Resp BP Pulse Ox 98.5 F 95 H 18 127/58 98 12/25/17 09:34 12/25/17 09:34 12/25/17 09:34 12/25/17 09:34 12/25/17 10:16 General appearance: Absent: mild distress Results - Labs CBC & Chem 7: 12/24/17 06:58 12/24/17 06:58 Labs: Laboratory Last Values WBC 23.3 K/mm3 (4.5-11.0) H 12/24/17 06:58 RBC 3.41 M/mm3 (3.65-5.03) L 12/24/17 06:58 Hgb 10.3 gm/dl (10.1-14.3) 12/24/17 06:58 Hct 31.3 % (30.3-42.9) 12/24/17 06:58 MCV 92 fl (79-97) 12/24/17 06:58 MCH 30 pg (28-32) 12/24/17 06:58 MCHC 33 % (30-34) 12/24/17 06:58 RDW 14.9 % (13.2-15.2) 12/24/17 06:58 Plt Count 367 K/mm3 (140-440) 12/24/17 06:58 Add Manual Diff Complete 12/24/17 06:58 Total Counted 100 12/24/17 06:58 Seg Neutrophils % Taker Off 12/24/17 06:58 Seg Neuts % (Manual) 100.0 % (40.0-70.0) H 12/24/17 06:58 Band Neutrophils % 0 % 12/24/17 06:58 Lymphocytes % (Manual) 0 % (13.4-35.0) L 12/24/17 06:58 Reactive Lymphs % (Man) 0 % 12/24/17 06:58 Monocytes % (Manual) 0 % (0.0-7.3) 12/24/17 06:58 Eosinophils % (Manual) 0 % (0.0-4.3) 12/24/17 06:58 Basophils % (Manual) 0 % (0.0-1.8) 12/24/17 06:58 Metamyelocytes % 0 % 12/24/17 06:58 Myelocytes % 0 % 12/24/17 06:58 Promyelocytes % 0 % 12/24/17 06:58 Blast Cells % 0 % 12/24/17 06:58 Nucleated RBC % Not Reportable 12/24/17 06:58 Seg Neutrophils # Man 23.3 K/mm3 (1.8-7.7) H 12/24/17 06:58 Band Neutrophils # 0.0 K/mm3 12/24/17 06:58 Lymphocytes # (Manual) 0.0 K/mm3 (1.2-5.4) L 12/24/17 06:58 Abs React Lymphs (Man) 0.0 K/mm3 12/24/17 06:58 Monocytes # (Manual) 0.0 K/mm3 (0.0-0.8) 12/24/17 06:58 Eosinophils # (Manual) 0.0 K/mm3 (0.0-0.4) 12/24/17 06:58 Basophils # (Manual) 0.0 K/mm3 (0.0-0.1) 12/24/17 06:58 Metamyelocytes # 0.0 K/mm3 12/24/17 06:58 Myelocytes # 0.0 K/mm3 12/24/17 06:58 Promyelocytes # 0.0 K/mm3 12/24/17 06:58 Blast Cells # 0.0 K/mm3 12/24/17 06:58 WBC Morphology Not Reportable 12/24/17 06:58 Hypersegmented Neuts Not Reportable 12/24/17 06:58 Hyposegmented Neuts Not Reportable 12/24/17 06:58 Hypogranular Neuts Not Reportable 12/24/17 06:58 Smudge Cells Not Reportable 12/24/17 06:58 Toxic Granulation Not Reportable 12/24/17 06:58 Toxic Vacuolation Not Reportable 12/24/17 06:58 Dohle Bodies Not Reportable 12/24/17 06:58 Pelger-Huet Anomaly Not Reportable 12/24/17 06:58 Mc Rods Not Reportable 12/24/17 06:58 Platelet Estimate Consistent w auto 12/24/17 06:58 Clumped Platelets Not Reportable 12/24/17 06:58 Plt Clumps, EDTA Not Reportable 12/24/17 06:58 Large Platelets Not Reportable 12/24/17 06:58 Giant Platelets Not Reportable 12/24/17 06:58 Platelet Satelliting Not Reportable 12/24/17 06:58 Plt Morphology Comment Not Reportable 12/24/17 06:58 RBC Morphology Normal 12/24/17 06:58 Dimorphic RBCs Not Reportable 12/24/17 06:58 Polychromasia Not Reportable 12/24/17 06:58 Hypochromasia Not Reportable 12/24/17 06:58 Poikilocytosis Not Reportable 12/24/17 06:58 Anisocytosis Not Reportable 12/24/17 06:58 Microcytosis Not Reportable 12/24/17 06:58 Macrocytosis Not Reportable 12/24/17 06:58 Spherocytes Not Reportable 12/24/17 06:58 Pappenheimer Bodies Not Reportable 12/24/17 06:58 Sickle Cells Not Reportable 12/24/17 06:58 Target Cells Not Reportable 12/24/17 06:58 Tear Drop Cells Not Reportable 12/24/17 06:58 Ovalocytes Not Reportable 12/24/17 06:58 Helmet Cells Not Reportable 12/24/17 06:58 [place]far[place] Bodies Not Reportable 12/24/17 06:58 [place] Rings Not Reportable 12/24/17 06:58 Adama Cells Not Reportable 12/24/17 06:58 Bite Cells Not Reportable 12/24/17 06:58 Crenated Cell Not Reportable 12/24/17 06:58 Elliptocytes Not Reportable 12/24/17 06:58 Acanthocytes (Spur) Not Reportable 12/24/17 06:58 Rouleaux Not Reportable 12/24/17 06:58 Hemoglobin C Crystals Not Reportable 12/24/17 06:58 Schistocytes Not Reportable 12/24/17 06:58 Malaria parasites Not Reportable 12/24/17 06:58 Matt Bodies Not Reportable 12/24/17 06:58 Hem Pathologist Commnt No 12/24/17 06:58 PT 13.8 Sec. (12.2-14.9) 12/23/17 20:03 INR 1.01 (0.87-1.13) 12/23/17 20:03 APTT 31.3 Sec. (24.2-36.6) 12/23/17 20:03 Sodium 128 mmol/L (137-145) L 12/24/17 06:58 Potassium 5.1 mmol/L (3.6-5.0) H D 12/24/17 06:58 Chloride 90.9 mmol/L (98-107) L 12/24/17 06:58 Carbon Dioxide 26 mmol/L (22-30) 12/24/17 06:58 Anion Gap 16 mmol/L 12/24/17 06:58 BUN 10 mg/dL (7-17) 12/24/17 06:58 Creatinine 0.2 mg/dL (0.7-1.2) L 12/24/17 06:58 Estimated GFR > 60 ml/min 12/24/17 06:58 BUN/Creatinine Ratio 50 % 12/24/17 06:58 Glucose 106 mg/dL (65-100) H 12/24/17 06:58 Calcium 8.2 mg/dL (8.4-10.2) L 12/24/17 06:58 Total Bilirubin 0.40 mg/dL (0.1-1.2) 12/23/17 20:03 AST 16 units/L (5-40) 12/23/17 20:03 ALT 28 units/L (7-56) 12/23/17 20:03 Alkaline Phosphatase 117 units/L (35-129) 12/23/17 20:03 Total Creatine Kinase 23 units/L (30-135) L 12/24/17 06:58 CK-MB (CK-2) 3.7 ng/mL (0.0-4.0) 12/24/17 06:58 CK-MB (CK-2) Rel Index 16.0 (0-4) H 12/24/17 06:58 Troponin T 0.049 ng/mL (0.00-0.029) H D 12/24/17 06:58 NT-Pro-B Natriuret Pep 819.6 pg/mL (0-900) 12/23/17 20:03 Total Protein 5.2 g/dL (6.3-8.2) L 12/23/17 20:03 Albumin 2.4 g/dL (3.9-5) L 12/23/17 20:03 Albumin/Globulin Ratio 0.9 % 12/23/17 20:03 Triglycerides 83 mg/dL (2-149) 12/23/17 20:03 Cholesterol 92 mg/dL (50-199) 12/23/17 20:03 LDL Cholesterol Direct 52 mg/dL (50-130) 12/23/17 20:03 HDL Cholesterol 27 mg/dL (40-59) L 12/23/17 20:03 Cholesterol/HDL Ratio 3.40 % 12/23/17 20:03
--- NOTE | 2017-12-25 20:13 | Consultation ---
History of Present Illness - Reason for Consult Consult date: 12/25/17 Esophageal cancer - History of Present Illness Ms. Early is a 67-year-old woman who was diagnosed with esophageal cancer [address] Jimenez. She was referred to a thoracic surgeon at [facility] and had an esophageal stent placed, a G-tube placed, and a port placed for chemotherapy, all 3 weeks ago. Since then, she has seen Dr. Alicea, and was given chemotherapy 2 weeks ago. She has been getting nutrition via her feeding tube and was taking some liquids by mouth. Over the last few days, she had noted coughing, worse with sitting upright surprisingly. There was no clear relationship to by mouth intake. On December 23, she awoke and started food or fluid. She subsequently became short of breath and was brought to [facility] by EMS. Here, she was diagnosed with right middle lobe and right lower lobe pneumonia and is being given antibiotics. A noncontrast CT of the abdomen and pelvis was performed showing ascites, the stent, and the pneumonia. Patient and her note that she has lost a lot of weight over the last 5 months. She had been losing weight for approximately 4 months prior to the diagnosis of esophageal cancer. There is no GI bleeding. Past History Past Medical History: cancer (advanced esophageal cancer), COPD, hypertension Past Surgical History: No surgical history Social history: , other (social drinking). denies: smoking Family history: denies: CAD Medications and Allergies Allergies Allergy/AdvReac Type Severity Reaction Status Date / Time No Known Allergies Allergy Verified 03/29/14 11:00 Home Medications Medication Instructions Recorded Confirmed Last Taken Type Alendronate Sodium [Fosamax] 70 mg PO QWEEK 03/29/14 03/29/14 03/25/14 20:00 History Amlodipine Bes/Olmesartan Med 1 tab PO DAILY 03/29/14 03/29/14 03/29/14 08:00 History [Jeffery 10-20 mg] Lisinopril 10 mg PO BID 03/29/14 03/29/14 03/29/14 08:00 History Carvedilol [Coreg] 3.125 mg PO 12/23/17 Unknown History HYDROcodone/ACETAMINOPHEN 1 each PO 12/23/17 12/23/17 History [Hydrocodone-Acetamin 10-325 mg] Morphine ER [Ms Contin ER] 30 mg PO 12/23/17 12/23/17 History Sucralfate [Carafate] 1 gm PO 12/23/17 Unknown History Enoxaparin [Lovenox] 40 mg SQ Q12HR 12/24/17 12/24/17 2 Days Ago History ~12/22/17 Active Meds: Active Medications Acetaminophen (Tylenol) 650 mg PO Q4H PRN PRN Reason: Pain MILD(1-3)/Fever >100.5/MORALES Albuterol (Proventil) 2.5 mg IH Q3HRT PRN PRN Reason: Shortness Of Breath Last Admin: 12/25/17 04:34 Dose: 2.5 mg Albuterol/Ipratropium (Duoneb *Not For Prn Use*) 1 ampul IH Q4HRT [facility] Last Admin: 12/25/17 16:14 Dose: 1 ampul Lipase/Protease/Amylase (Pancreaze Dr 10,500 Unit) 1 each FEEDTUBE PRN PRN PRN Reason: For Clogged Feeding Tube Diltiazem HCl (Cardizem) 30 mg PO Q6HR [facility] Last Admin: 12/25/17 18:40 Dose: 30 mg Enoxaparin Sodium (Lovenox) 40 mg SUB-Q QDAY@2200 [facility] Last Admin: 12/24/17 22:23 Dose: 40 mg Hydromorphone HCl (Dilaudid) 0.25 mg IV Q4H PRN PRN Reason: Pain , Severe (7-10) Last Admin: 12/25/17 12:18 Dose: 0.25 mg Sodium Chloride (Nacl 0.9% 1000 Ml) 1,000 mls @ 75 mls/hr IV DIRECT [facility] Last Infusion: 12/25/17 18:34 Dose: 75 mls/hr Piperacillin Sod/Tazobactam Sod (Zosyn/Ns 4.5gm/100ml) 4.5 gm in 100 mls @ 200 mls/hr IV Q8HR [facility]; Protocol Last Admin: 12/25/17 17:40 Dose: 100 mls/hr Vancomycin HCl 500 mg/ Sodium (Chloride) 110 mls @ 55 mls/hr IV Q12H [facility] Last Admin: 12/25/17 19:09 Dose: 55 mls/hr Morphine Sulfate (Ms Contin Er) 30 mg PO Q12HR [facility] Last Admin: 12/25/17 15:08 Dose: 30 mg Ondansetron HCl (Zofran) 4 mg IV Q4H PRN PRN Reason: Nausea And Vomiting Simple Syrup (Simple Syrup) 15 ml FEEDTUBE PRN PRN PRN Reason: Hypoglycemia Simple Syrup (Simple Syrup) 30 ml FEEDTUBE PRN PRN PRN Reason: Hypoglycemia Sodium Bicarbonate (Sodium Bicarbonate) 325 mg FEEDTUBE PRN PRN PRN Reason: For Clogged Feeding Tube Sodium Chloride (Sodium Chloride Flush Syringe 10 Ml) 10 ml IV BID [facility] Last Admin: 12/25/17 12:26 Dose: 10 ml Sodium Chloride (Sodium Chloride Flush Syringe 10 Ml) 10 ml IV PRN PRN PRN Reason: LINE FLUSH Review of Systems All systems: negative (as noted in HPI) Exam - Constitutional Vitals: Temp Pulse Resp BP Pulse Ox 98.2 F 99 H 20 122/55 94 12/25/17 17:27 12/25/17 17:27 12/25/17 17:27 12/25/17 17:27 12/25/17 17:27 General appearance: Present: cachectic - EENT Eyes: Present: PERRL, EOM intact ENT: hearing intact - Neck Neck: Present: supple - Respiratory Respiratory effort: normal, other (Port in place in R subclavian region) Respiratory: right: diminished, left: CTA - Cardiovascular Rhythm: regular Heart Sounds: Present: S1 & S2 - Extremities Extremities: No edema - Abdominal General gastrointestinal: Present: soft, non-tender, other (G-tube in place in LUQ, held with sutures. Site clean, no drainage.) Results - Labs CBC & Chem 7: 12/24/17 06:58 12/24/17 06:58 - Imaging and Cardiology CT scan - abdomen: report reviewed Assessment and Plan 1. Esophageal cancer - advanced. Pt is undergoing aggressive treatment by Oncology, and followed by Thoracic Surgery at [place]. - This likely also accounts for the ascites. - Once patient improves regarding pneumonia, would have her follow back up with her oncologist. 2. Cough/pneumonia - most c/w aspiration pneumonia. We will need to review records regarding esophageal stent placement and other details of malignancy. However, cough and pneumonia are most worrisome for aspiration and possibly for a tracheoesophageal fistula. Once records are reviewed, we can decide whether a barium study is needed of the esophagus to exclude that possibility. Otherwise, would continue antibiotics therapy.
[2017-12-25] MEDS: LOVENOX SUB-Q SCH (21:20)
[2017-12-26] MEDS: CARDIZEM PO SCH ×4 (01:09→17:27)
[2017-12-26] MEDS: SODIUM CHLORIDE FLUSH SYRINGE 10 ML IV SCH ×3 (01:09→21:48)
[2017-12-26] MEDS: ZOSYN/NS 4.5GM/100ML 4.5 GM/100 ML VIAL IV SCH ×5 (01:11→19:22)
[2017-12-26] MEDS: DILAUDID IV PRN (01:17)
[2017-12-26] MEDS: DUONEB *Not for PRN Use IH SCH ×5 (03:45→20:32)
[2017-12-26] MEDS: VANCOMYCIN 500 MG in NACL 0.9% 100 ML IV SCH ×2 (06:36→17:28)
--- NOTE | 2017-12-26 07:54 | Progress Note ---
Assessment and Plan Assessment and plan: Patient is a 58 woman with a history of esophageal Cancer on Chemotherapy ( finished this week) with PEG tube feeding but takes clear liquid diet with meds , End stage COPD, osteoporosis, hypertension and GERD who presents to [facility] ED with abdominal pains due to severe productive cough and SOB * CT abd/pelvis wo contrast IMPRESSION: Extensive pneumonia involving the right lower lobe and right middle lobe with bilateral pleural effusions. Ascites. No definite acute process in the abdomen and pelvis. Distended urinary bladder. Arthritic changes in the lumbar spine. * pCXR IMPRESSION: Right lower lung infiltrate. Sepsis due to Pneumonia, poa with GP bacteremia: treat with abx, blood culture are growing GPC, started IV Vancomycin with close monitoring Aspiration RML and RLL Pneumonia, poa: treat with IV abx: IV vanc, iv zosyn and iv levaquin Acute hypoxic respiratory failure was on 5 liters of O2 (new to O2), poa: treat with O2, with daily weaning attempts, added DuoNebs Abdominal pains with new onset Ascites, related to Esophageal cancer per GI Abnormal cardiac enzymes with elevated troponin: d/w Cardiology, Dr. 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 Follow-up on current diagnosis cough, sob. Overnight uneventful. Patient denies any nausea/vomiting or severe headaches. Imaging, nursing note, chart, labs and old chart reviewed. Discussed with patient. Hospitalist Physical - Physical exam Narrative exam: GEN: cachetic, bmi 15.5 ill appearing, mild increase accessory muscles, Awake, Alert, Orientated x 3 HEENT: NCAT, EOMI, PERRL, OP Clear and dry NECK: supple, no adenopathy, no thyromegaly, no JVD CVS/HEART: RRR, normal S1S2, pulses present bilaterally CHEST/LUNGS: coarse bs bilateral, Symmetrical chest expansion, diminished air entry bilaterally GI/Abdomen: soft, NT, mild distended, +PEG in place, good bowel sounds, no guarding or rebound /Bladder: no suprapubic tenderness, no CVA or paraspinal tenderness EXT/Skin: no obvious rash MSK: FROM x 4 Neuro: CN 2-12 grossly intact, no new focal deficits Psych: anxious - Constitutional Vitals: Temp Pulse Resp BP Pulse Ox 97.9 F 103 H 24 149/66 99 12/26/17 04:51 12/26/17 04:51 12/26/17 04:51 12/26/17 04:51 12/26/17 04:51 General appearance: Present: cachectic Results - Labs CBC & Chem 7: 12/24/17 06:58 12/24/17 06:58 Labs: Laboratory Last Values WBC 23.3 K/mm3 (4.5-11.0) H 12/24/17 06:58 RBC 3.41 M/mm3 (3.65-5.03) L 12/24/17 06:58 Hgb 10.3 gm/dl (10.1-14.3) 12/24/17 06:58 Hct 31.3 % (30.3-42.9) 12/24/17 06:58 MCV 92 fl (79-97) 12/24/17 06:58 MCH 30 pg (28-32) 12/24/17 06:58 MCHC 33 % (30-34) 12/24/17 06:58 RDW 14.9 % (13.2-15.2) 12/24/17 06:58 Plt Count 367 K/mm3 (140-440) 12/24/17 06:58 Add Manual Diff Complete 12/24/17 06:58 Total Counted 100 12/24/17 06:58 Seg Neutrophils % Interchange Agent 12/24/17 06:58 Seg Neuts % (Manual) 100.0 % (40.0-70.0) H 12/24/17 06:58 Band Neutrophils % 0 % 12/24/17 06:58 Lymphocytes % (Manual) 0 % (13.4-35.0) L 12/24/17 06:58 Reactive Lymphs % (Man) 0 % 12/24/17 06:58 Monocytes % (Manual) 0 % (0.0-7.3) 12/24/17 06:58 Eosinophils % (Manual) 0 % (0.0-4.3) 12/24/17 06:58 Basophils % (Manual) 0 % (0.0-1.8) 12/24/17 06:58 Metamyelocytes % 0 % 12/24/17 06:58 Myelocytes % 0 % 12/24/17 06:58 Promyelocytes % 0 % 12/24/17 06:58 Blast Cells % 0 % 12/24/17 06:58 Nucleated RBC % Not Reportable 12/24/17 06:58 Seg Neutrophils # Man 23.3 K/mm3 (1.8-7.7) H 12/24/17 06:58 Band Neutrophils # 0.0 K/mm3 12/24/17 06:58 Lymphocytes # (Manual) 0.0 K/mm3 (1.2-5.4) L 12/24/17 06:58 Abs React Lymphs (Man) 0.0 K/mm3 12/24/17 06:58 Monocytes # (Manual) 0.0 K/mm3 (0.0-0.8) 12/24/17 06:58 Eosinophils # (Manual) 0.0 K/mm3 (0.0-0.4) 12/24/17 06:58 Basophils # (Manual) 0.0 K/mm3 (0.0-0.1) 12/24/17 06:58 Metamyelocytes # 0.0 K/mm3 12/24/17 06:58 Myelocytes # 0.0 K/mm3 12/24/17 06:58 Promyelocytes # 0.0 K/mm3 12/24/17 06:58 Blast Cells # 0.0 K/mm3 12/24/17 06:58 WBC Morphology Not Reportable 12/24/17 06:58 Hypersegmented Neuts Not Reportable 12/24/17 06:58 Hyposegmented Neuts Not Reportable 12/24/17 06:58 Hypogranular Neuts Not Reportable 12/24/17 06:58 Smudge Cells Not Reportable 12/24/17 06:58 Toxic Granulation Not Reportable 12/24/17 06:58 Toxic Vacuolation Not Reportable 12/24/17 06:58 Dohle Bodies Not Reportable 12/24/17 06:58 Pelger-Huet Anomaly Not Reportable 12/24/17 06:58 Mc Rods Not Reportable 12/24/17 06:58 Platelet Estimate Consistent w auto 12/24/17 06:58 Clumped Platelets Not Reportable 12/24/17 06:58 Plt Clumps, EDTA Not Reportable 12/24/17 06:58 Large Platelets Not Reportable 12/24/17 06:58 Giant Platelets Not Reportable 12/24/17 06:58 Platelet Satelliting Not Reportable 12/24/17 06:58 Plt Morphology Comment Not Reportable 12/24/17 06:58 RBC Morphology Normal 12/24/17 06:58 Dimorphic RBCs Not Reportable 12/24/17 06:58 Polychromasia Not Reportable 12/24/17 06:58 Hypochromasia Not Reportable 12/24/17 06:58 Poikilocytosis Not Reportable 12/24/17 06:58 Anisocytosis Not Reportable 12/24/17 06:58 Microcytosis Not Reportable 12/24/17 06:58 Macrocytosis Not Reportable 12/24/17 06:58 Spherocytes Not Reportable 12/24/17 06:58 Pappenheimer Bodies Not Reportable 12/24/17 06:58 Sickle Cells Not Reportable 12/24/17 06:58 Target Cells Not Reportable 12/24/17 06:58 Tear Drop Cells Not Reportable 12/24/17 06:58 Ovalocytes Not Reportable 12/24/17 06:58 Helmet Cells Not Reportable 12/24/17 06:58 [place] Bodies Not Reportable 12/24/17 06:58 [place] Rings Not Reportable 12/24/17 06:58 [place] Cells Not Reportable 12/24/17 06:58 Bite Cells Not Reportable 12/24/17 06:58 Crenated Cell Not Reportable 12/24/17 06:58 Elliptocytes Not Reportable 12/24/17 06:58 Acanthocytes (Spur) Not Reportable 12/24/17 06:58 Rouleaux Not Reportable 12/24/17 06:58 Hemoglobin C Crystals Not Reportable 12/24/17 06:58 Schistocytes Not Reportable 12/24/17 06:58 Malaria parasites Not Reportable 12/24/17 06:58 Matt Bodies Not Reportable 12/24/17 06:58 Hem Pathologist Commnt No 12/24/17 06:58 PT 13.8 Sec. (12.2-14.9) 12/23/17 20:03 INR 1.01 (0.87-1.13) 12/23/17 20:03 APTT 31.3 Sec. (24.2-36.6) 12/23/17 20:03 Sodium 128 mmol/L (137-145) L 12/24/17 06:58 Potassium 5.1 mmol/L (3.6-5.0) H D 12/24/17 06:58 Chloride 90.9 mmol/L (98-107) L 12/24/17 06:58 Carbon Dioxide 26 mmol/L (22-30) 12/24/17 06:58 Anion Gap 16 mmol/L 12/24/17 06:58 BUN 10 mg/dL (7-17) 12/24/17 06:58 Creatinine 0.2 mg/dL (0.7-1.2) L 12/24/17 06:58 Estimated GFR > 60 ml/min 12/24/17 06:58 BUN/Creatinine Ratio 50 % 12/24/17 06:58 Glucose 106 mg/dL (65-100) H 12/24/17 06:58 Calcium 8.2 mg/dL (8.4-10.2) L 12/24/17 06:58 Total Bilirubin 0.40 mg/dL (0.1-1.2) 12/23/17 20:03 AST 16 units/L (5-40) 12/23/17 20:03 ALT 28 units/L (7-56) 12/23/17 20:03 Alkaline Phosphatase 117 units/L (35-129) 12/23/17 20:03 Total Creatine Kinase 23 units/L (30-135) L 12/24/17 06:58 CK-MB (CK-2) 3.7 ng/mL (0.0-4.0) 12/24/17 06:58 CK-MB (CK-2) Rel Index 16.0 (0-4) H 12/24/17 06:58 Troponin T 0.049 ng/mL (0.00-0.029) H D 12/24/17 06:58 NT-Pro-B Natriuret Pep 819.6 pg/mL (0-900) 12/23/17 20:03 Total Protein 5.2 g/dL (6.3-8.2) L 12/23/17 20:03 Albumin 2.4 g/dL (3.9-5) L 12/23/17 20:03 Albumin/Globulin Ratio 0.9 % 12/23/17 20:03 Triglycerides 83 mg/dL (2-149) 12/23/17 20:03 Cholesterol 92 mg/dL (50-199) 12/23/17 20:03 LDL Cholesterol Direct 52 mg/dL (50-130) 12/23/17 20:03 HDL Cholesterol 27 mg/dL (40-59) L 12/23/17 20:03 Cholesterol/HDL Ratio 3.40 % 12/23/17 20:03
[2017-12-26 09:32] LABS: Hematocrit 22.4 % (30.3-42.9); Hemoglobin 7.7 gm/dl (10.1-14.3); Mean Corpuscular HGB Conc 35 % (30-34); Mean Corpuscular Hemoglobin 31 pg (28-32); Mean Corpuscular Volume 91 fl (79-97); Platelet Count 179 K/mm3 (140-440); Red Blood Count 2.47 M/mm3 (3.65-5.03)
[2017-12-26] MEDS: MS CONTIN ER PO SCH ×2 (09:39→21:47)
[2017-12-26 09:51] LABS: BUN/Creatinine Ratio 40; Blood Urea Nitrogen 8 mg/dL (7-17); Hemolysis Index 2
[2017-12-26] MEDS ORDERED: LEVAQUIN 750MG/150ML 750 MG/150 ML BAG IV SCH (10:00)
--- NOTE | 2017-12-26 12:44 | Consultation ---
History of Present Illness - Reason for Consult Consult date: 12/26/17 Extensive pneumonia, GPC bacteremia Requesting physician: COURTNEY GONGORA - History of Present Illness Patient is a 67-year-old female with recently diagnosed esophageal cancer, COPD/ emphysema, currently on chemotherapy, last dose was on Tuesday. Of note she is status post esophageal stent placement. She presented to the emergency room on 12/23/2017 with complaints of shortness of breath. Has been gradually worsening over the last 1 month. She also reported a cough with brownish sputum production. On workup in the emergency room, she was found to have a right lower lobe infiltrate as well as a mildly elevated troponin. Cardiology was consulted who thought the troponin elevation was nonspecific. Patient had blood cultures obtained and was started empirically on IV vancomycin and Zosyn. Cultures started growing GPC's, hence infectious diseases was consulted. Patient reports shortness of breath, quite severe with cough and expectoration. No nausea, vomiting or diarrhea. She does have a PORT for chemotherapy placed a month ago. Reports weight loss of about 20 lbs over the last 2-3 months. Review of Systems: General: no fevers,chills or rigors HEENT: no new visual disturbance Respiratory: cough, sputum + with shortness of breath. no hemoptysis Cardiovascular: No chest pain, syncope Gastrointestinal: No nausea, vomiting or diarrhea Genitourinary: No dysuria or hematuria Musculoskeletal: No new or worsening neck pain or back pain Neurologic: No headaches, seizures Hematologic: No easy bruising or bleeding Endocrine: No night sweats. acute weight loss + as above Skin: negative for rash, jaundice Psychiatric: No suicidal or homicidal ideation Past History Past Medical History: cancer (advanced esophageal cancer), COPD, hypertension Past Surgical History: No surgical history Social history: , other (social drinking). denies: smoking Family history: denies: CAD Medications and Allergies Allergies Allergy/AdvReac Type Severity Reaction Status Date / Time No Known Allergies Allergy Verified 03/29/14 11:00 Home Medications Medication Instructions Recorded Confirmed Last Taken Type Alendronate Sodium [Fosamax] 70 mg PO QWEEK 03/29/14 12/26/17 03/25/14 20:00 History Amlodipine Bes/Olmesartan Med 1 tab PO DAILY 03/29/14 12/26/17 03/29/14 08:00 History [Jeffery 10-20 mg] Lisinopril 10 mg PO BID 03/29/14 12/26/17 03/29/14 08:00 History Carvedilol [Coreg] 3.125 mg PO DAILY 12/23/17 12/26/17 Unknown History HYDROcodone/ACETAMINOPHEN 1 each PO PRN 12/23/17 12/26/17 Unknown History [Hydrocodone-Acetamin 10-325 mg] Sucralfate [Carafate] 1 gm PO QAC 12/23/17 12/26/17 Unknown History Enoxaparin [Lovenox] 40 mg SQ Q12HR 12/24/17 12/24/17 2 Days Ago History ~12/22/17 Active Meds: Active Medications Acetaminophen (Tylenol) 650 mg PO Q4H PRN PRN Reason: Pain MILD(1-3)/Fever >100.5/MORALES Albuterol (Proventil) 2.5 mg IH Q3HRT PRN PRN Reason: Shortness Of Breath Last Admin: 12/25/17 04:34 Dose: 2.5 mg Albuterol/Ipratropium (Duoneb *Not For Prn Use*) 1 ampul IH Q4HRT [facility] Last Admin: 12/26/17 08:26 Dose: 1 ampul Lipase/Protease/Amylase (Pancreaze Dr 10,500 Unit) 1 each FEEDTUBE PRN PRN PRN Reason: For Clogged Feeding Tube Diltiazem HCl (Cardizem) 30 mg PO Q6HR [facility] Last Admin: 12/26/17 12:03 Dose: 30 mg Enoxaparin Sodium (Lovenox) 40 mg SUB-Q QDAY@2200 [facility] Last Admin: 12/25/17 21:20 Dose: 40 mg Hydromorphone HCl (Dilaudid) 0.25 mg IV Q4H PRN PRN Reason: Pain , Severe (7-10) Last Admin: 12/26/17 01:17 Dose: 0.25 mg Sodium Chloride (Nacl 0.9% 1000 Ml) 1,000 mls @ 75 mls/hr IV DIRECT [facility] Last Infusion: 12/25/17 18:34 Dose: 75 mls/hr Vancomycin HCl 500 mg/ Sodium (Chloride) 110 mls @ 55 mls/hr IV Q12H [facility] Last Admin: 12/26/17 06:36 Dose: 55 mls/hr Piperacillin Sod/Tazobactam Sod (Zosyn/Ns 4.5gm/100ml) 4.5 gm in 100 mls @ 200 mls/hr IV Q8H [facility]; Protocol Last Admin: 12/26/17 09:39 Dose: 200 mls/hr Levofloxacin/Dextrose (Levaquin 750mg/150ml) 750 mg in 150 mls @ 100 mls/hr IV Q24HR [facility]; Protocol Last Admin: 12/26/17 09:40 Dose: 100 mls/hr Morphine Sulfate (Ms Contin Er) 30 mg PO Q12HR [facility] Last Admin: 12/26/17 09:39 Dose: 30 mg Ondansetron HCl (Zofran) 4 mg IV Q4H PRN PRN Reason: Nausea And Vomiting Simple Syrup (Simple Syrup) 15 ml FEEDTUBE PRN PRN PRN Reason: Hypoglycemia Simple Syrup (Simple Syrup) 30 ml FEEDTUBE PRN PRN PRN Reason: Hypoglycemia Sodium Bicarbonate (Sodium Bicarbonate) 325 mg FEEDTUBE PRN PRN PRN Reason: For Clogged Feeding Tube Sodium Chloride (Sodium Chloride Flush Syringe 10 Ml) 10 ml IV BID [facility] Last Admin: 12/26/17 09:51 Dose: 10 ml Sodium Chloride (Sodium Chloride Flush Syringe 10 Ml) 10 ml IV PRN PRN PRN Reason: LINE FLUSH Physical Examination - Physical Exam Narrative exam: Physical Exam: Constitutional: Alert, cooperative. Mild respiratory distress. Cachexia + Head, Ears, Nose: Normocephalic, atraumatic. External ears, nose normal Eyes: Conjunctivae/corneas clear. No icterus. No ptosis. Neck: Supple, no meningeal signs Oral: dentition poor, with no thrush Cardiovascular: S1, S2 normal. Respiratory: diffuse rhonchi with scattered crackles b/l GI: Soft, non-tender; bowel sounds normal. No peritoneal signs. G-tube + Musculoskeletal: No pedal edema, no cyanosis. Skin: No rash or abscess Hem/Lymphatic: No palpable cervical or supraclavicular nodes. No lymphangitis Psych: Mood anxious. Affect normal Neurological: Awake, alert, oriented. No gross abnormality - Constitutional Vitals: Vital Signs Temp Pulse Resp BP Pulse Ox 98.2 F 102 H 20 129/59 92 12/26/17 07:31 12/26/17 12:03 12/26/17 08:39 12/26/17 12:03 12/26/17 08:29 Temperature -Last 24 Hours Temperature 98.2 F Temperature 97.9 F Temperature 98.5 F Temperature 98.3 F Temperature 98.2 F Results - Labs CBC & Chem 7: 12/26/17 09:00 12/26/17 09:00 Labs: Cultures: 12/23/2017 blood culture: 3 out of 4 bottles growing coag-negative staph. Susceptibilities pending. Abnormal lab results 12/26/17 12/26/17 Range/Units 09:00 09:00 WBC 2.5 L (4.5-11.0) K/mm3 RBC 2.47 L (3.65-5.03) M/mm3 Hgb 7.7 L (10.1-14.3) gm/dl Hct 22.4 L D (30.3-42.9) % MCHC 35 H (30-34) % Sodium 128 L (137-145) mmol/L Potassium 3.3 L D (3.6-5.0) mmol/L Chloride 93.8 L (98-107) mmol/L Creatinine < 0.2 L (0.7-1.2) mg/dL Glucose 151 H (65-100) mg/dL Calcium 8.0 L (8.4-10.2) mg/dL - Imaging and Cardiology Chest x-ray: report reviewed, image reviewed (Chest x-ray reveals a right lower lobe infiltrate.) CT scan - abdomen: report reviewed, image reviewed (CT abdomen and pelvis in the lower lung cuts reveals evidence of right middle and lower lobe pneumonia and bilateral pleural effusions. There is also evidence of ascites.) Assessment and Plan 67-year-old female with recently diagnosed esophageal cancer, COPD/emphysema, currently on chemotherapy, last dose was on Tuesday admitted with: 1) Sepsis, present on admission presenting as leucocytosis, tachycardia and tachypnea; likely secondary to extensive right middle and lower lobe pneumonia. Patient does have a distal esophageal stent, silent aspiration is certainly a possibility. Hence for now, continue empiric treatment with IV Zosyn and vancomycin. Will also recommend obtaining sputum cultures. It seems she did receive GM-CSF post chemotherapy, which may also be contributing to the WBC count. 2) Acute hypoxic respiratory failure secondary to extensive pneumonia on top of underlying COPD: Supplement oxygen as needed. Continue antibiotics as above. 3) Coagulase-negative staph bacteremia: 3 out of 4 bottles positive. Patient does have intravascular prosthetic material in the form of a PORT, however, no evidence of tunnel infection or obvious PORT infection. Possibly a contaminant , marcial. since she is a hard stick for venipuncture, however, definitive infection cannot be ruled out given both sets are positive. We'll continue vancomycin for now. Transthoracic echocardiogram obtained, results pending. 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 5) Severe protein calorie malnutrition: Patient's weight is 36 kg with a BMI of 15.5. Antibiotics will need to be adjusted accordingly. Recs: - continue IV Zosyn - continue IV Vancomycin, target trough between 10-20 mcg/ml - sputum culture ordered - follow up TTE results - repeat blood cultures ordered Plan discussed with Dr. Gongora. Please call with questions. Francy Peterson MD Infectious Disease Central Office Repairer [facility]
--- NOTE | 2017-12-26 12:46 | Gastroenterology Progress Note ---
Assessment and Plan 1. Esophageal cancer - advanced. Pt is undergoing aggressive treatment by Oncology, and followed by Thoracic Surgery at [place]. - This likely also accounts for the ascites. - Once patient improves regarding pneumonia, would have her follow back up with her oncologist. 2. Cough/pneumonia - most c/w aspiration pneumonia. We will need to review records regarding esophageal stent placement and other details of malignancy. However, cough and pneumonia are most worrisome for aspiration and possibly for a tracheoesophageal fistula. Once records are reviewed, we can decide whether a barium study is needed of the esophagus to exclude that possibility. Otherwise, would continue antibiotics therapy. Subjective Date of service: 12/26/17 Principal diagnosis: Esophageal CA, ascites, pneumonia Interval history: Patient resting in bed w/o acute distress. Reports continued SOB. Denies abd pain or N/V. Tolerating TFs. Objective - Constitutional Vitals: Temp Pulse Resp BP Pulse Ox 98.2 F 102 H 20 129/59 92 12/26/17 07:31 12/26/17 12:03 12/26/17 08:39 12/26/17 12:03 12/26/17 08:29 General appearance: no acute distress, cachectic - Respiratory Respiratory: bilateral: diminished - Cardiovascular Rhythm: other (tachycardia) - Gastrointestinal General gastrointestinal: Present: soft, non-tender, non-distended, normal bowel sounds, other (+PEG) - Neurologic Neurological: alert and oriented x3 - Labs CBC & Chem 7: 12/26/17 09:00 12/26/17 09:00 Labs: Laboratory Results - last 24 hr 12/26/17 12/26/17 09:00 09:00 WBC 2.5 L RBC 2.47 L Hgb 7.7 L Hct 22.4 L D MCV 91 MCH 31 MCHC 35 H RDW 15.0 Plt Count 179 Sodium 128 L Potassium 3.3 L D Chloride 93.8 L Carbon Dioxide 25 Anion Gap 13 BUN 8 Creatinine < 0.2 L Estimated GFR > 60 BUN/Creatinine Ratio 40 Glucose 151 H Calcium 8.0 L
--- NOTE | 2017-12-26 13:09 | Progress Note ---
Assessment and Plan Cont present cardiac regimen. Await echo. The patient has been seen in conjunction with Dr. Keyes who agrees with the assessment and plan of care. - Patient Problems (1) Pneumonia Current Visit: Yes Status: Acute Qualifiers: Pneumonia type: due to unspecified organism Laterality: right Lung location: lower lobe of lung Qualified Code(s): J18.1 - Lobar pneumonia, unspecified organism (2) Acute respiratory failure Current Visit: Yes Status: Acute (3) COPD exacerbation Current Visit: Yes Status: Acute (4) Elevated troponin Current Visit: Yes Status: Acute (5) Esophageal cancer Current Visit: Yes Status: Chronic (6) Hypertension Current Visit: Yes Status: Chronic Qualifiers: Hypertension type: essential hypertension Qualified Code(s): I10 - Essential (primary) hypertension (7) Anemia Current Visit: Yes Status: Acute Subjective Date of service: 12/26/17 Principal diagnosis: Esophageal CA, ascites, pneumonia Interval history: pt resting in bed, still with c/o SOB, on O2 via venti-mask. Objective Last Vital Signs Temp 98.2 F 12/26/17 07:31 Pulse 102 H 12/26/17 12:03 Resp 20 12/26/17 08:39 BP 129/59 12/26/17 12:03 Pulse Ox 92 12/26/17 08:29 - Physical Examination General: No Apparent Distress HEENT: Positive: EOMI, Normocephaly, Mucus Membranes Moist Neck: Positive: neck supple, trachea midline Cardiac: Positive: Regular Rhythm Lungs: Positive: Decreased Breath Sounds, Rhonchi, Oxygen Neuro: Positive: Grossly Intact Abdomen: Positive: Soft, Active Bowel Sounds. Negative: Tender Skin: Positive: Clear. Negative: Rash Musculoskeletal: Normal Range of Motion Extremities: Present: edema (trace BLE) - Labs and Meds CBC 12/26/17 Range/Units 09:00 WBC 2.5 L (4.5-11.0) K/mm3 RBC 2.47 L (3.65-5.03) M/mm3 Hgb 7.7 L (10.1-14.3) gm/dl Hct 22.4 L D (30.3-42.9) % Plt Count 179 (140-440) K/mm3 Comprehensive Metabolic Panel 12/26/17 Range/Units 09:00 Sodium 128 L (137-145) mmol/L Potassium 3.3 L D (3.6-5.0) mmol/L Chloride 93.8 L (98-107) mmol/L Carbon Dioxide 25 (22-30) mmol/L BUN 8 (7-17) mg/dL Creatinine < 0.2 L (0.7-1.2) mg/dL Glucose 151 H (65-100) mg/dL Calcium 8.0 L (8.4-10.2) mg/dL - Imaging and Cardiology EKG: image reviewed - EKG Sinus rhythms and dysrhythmias: sinus tachycardia Myocardial infarction: septal [place] (old age or ind
[2017-12-26] MEDS ORDERED: K-DUR PO ONE (14:08)
[2017-12-26] MEDS: NACL 0.9% 1000 ML 1,000 ML IV SCH (14:34)
[2017-12-26] MEDS ORDERED: LASIX IV ONE (16:48)
[2017-12-26] MEDS: CARAFATE PO SCH (17:30)
[2017-12-26] MEDS: LOVENOX SUB-Q SCH (21:47)
[2017-12-27] MEDS: CARDIZEM PO SCH ×4 (00:49→18:43)
[2017-12-27] MEDS: ZOSYN/NS 4.5GM/100ML 4.5 GM/100 ML VIAL IV SCH ×3 (00:50→16:28)
[2017-12-27] MEDS: DUONEB *Not for PRN Use IH SCH ×7 (01:06→21:30)
[2017-12-27 05:45] LABS: Hemoglobin 8.2 gm/dl (10.1-14.3); Mean Corpuscular HGB Conc 33 % (30-34); Mean Corpuscular Hemoglobin 30 pg (28-32); Mean Corpuscular Volume 92 fl (79-97); Platelet Count 185 K/mm3 (140-440); Red Blood Count 2.73 M/mm3 (3.65-5.03); Red Cell Distribution Width 14.5 % (13.2-15.2)
[2017-12-27 06:17] LABS: BUN/Creatinine Ratio 30; Blood Urea Nitrogen 6 mg/dL (7-17); Calcium 8.3 mg/dL (8.4-10.2); Hemolysis Index 2
[2017-12-27] MEDS: VANCOMYCIN 500 MG in NACL 0.9% 100 ML IV SCH ×2 (06:42→20:15)
[2017-12-27] MEDS: DILAUDID IV PRN (08:39)
--- NOTE | 2017-12-27 09:57 | Progress Note ---
<JULIO SEQUEIRA - Last Filed: 12/27/17 11:52> Assessment and Plan 67-year-old female with recently diagnosed esophageal cancer, COPD/emphysema, currently on chemotherapy, last dose was on Tuesday admitted with: 1) Sepsis, Improved. likely secondary to extensive right middle and lower lobe pneumonia. Patient does have a distal esophageal stent, silent aspiration is certainly a possibility. Hence for now, continue empiric treatment with IV Zosyn and vancomycin. It seems she did receive GM-CSF post chemotherapy, which may also be contributing to the WBC count. Blood cultures pending. 2) Acute hypoxic respiratory failure secondary to extensive pneumonia on top of underlying COPD: Supplement oxygen as needed. Continue antibiotics as above. 3) Coagulase-negative staph bacteremia: 3 out of 4 bottles positive. Patient does have intravascular prosthetic material in the form of a PORT, however, no evidence of tunnel infection or obvious PORT infection. Possibly a contaminant , marcial. since she is a hard stick for venipuncture, however, definitive infection cannot be ruled out given both sets are positive. We'll continue vancomycin for now. Transthoracic echocardiogram obtained, results pending. 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 5) Severe protein calorie malnutrition: Patient's weight is 36 kg with a BMI of 15.5. Antibiotics will need to be adjusted accordingly. Recs: - continue IV Zosyn - continue IV Vancomycin, target trough between 10-20 mcg/ml - f/u on sputum culture - f/u on TTE -f/u on Blood cultures Subjective Principal diagnosis: Esophageal CA, ascites, pneumonia Objective - Constitutional Vitals: Vital Signs Temp Pulse Resp BP Pulse Ox 97.8 F 97 H 14 134/49 96 12/27/17 07:47 12/27/17 07:47 12/27/17 07:47 12/27/17 07:47 12/27/17 07:47 Temperature -Last 24 Hours Temperature 97.8 F Temperature 97.5 F Temperature 97.7 F Temperature 97.7 F - Labs CBC & Chem 7: 12/27/17 04:46 12/27/17 04:46 Labs: Abnormal lab results 12/26/17 12/27/17 12/27/17 Range/Units 09:00 04:46 04:46 WBC 2.5 L (4.5-11.0) K/mm3 RBC 2.73 L (3.65-5.03) M/mm3 Hgb 8.2 L (10.1-14.3) gm/dl Hct 25.0 L (30.3-42.9) % Sodium 130 L (137-145) mmol/L Potassium 3.3 L D 3.3 L (3.6-5.0) mmol/L Chloride 90.2 L (98-107) mmol/L Carbon Dioxide 31 H (22-30) mmol/L BUN 6 L (7-17) mg/dL Creatinine 0.2 L (0.7-1.2) mg/dL Glucose 135 H (65-100) mg/dL Calcium 8.3 L (8.4-10.2) mg/dL <FRANCY PETERSON. - Last Filed: 12/27/17 13:31> Assessment and Plan Leucocytosis improved. Will follow up sputum culture, follow up TTE report. Continue current antimicrobials. I have personally seen and evaluated this patient on 12/27/2017 with Julio Sequeira NP. I have reviewed and confirmed the medical history, physical examination findings, pertinent lab data, microbiologic data & personally reviewed the imaging. We evaluated the risk-benefit, side effect profile of anti -microbials and jointly formulated the above assessment and plan. Francy Peterson MD [facility] C: [phone] O: [phone] Subjective Date of service: 12/27/17 Interval history: Reports improvement in shortness of breath and cough. No fever. No rash. Tolerating antimicrobials well. Remains on venti-mask. Still producing brownish sputum. Discussed with bedside RN. Objective - Exam Narrative Exam: Physical Exam: Constitutional: Alert, cooperative. No acute distress. Cachectic Head, Ears, Nose: Normocephalic, atraumatic. External ears, nose normal Eyes: Conjunctivae/corneas clear. No icterus. No ptosis. Neck: Supple, no meningeal signs Oral: mucosa moist, no thrush Cardiovascular: S1, S2 normal. Respiratory: bilaterally scattered rhonchi + GI: Soft, non-tender; bowel sounds normal. No peritoneal signs. G-tube present. Musculoskeletal: No pedal edema, no cyanosis. Skin: No rash or abscess Hem/Lymphatic: No palpable cervical or supraclavicular nodes. No lymphangitis Psych: Mood ok. Affect normal Neurological: Awake, alert, oriented. No gross abnormality - Constitutional Vitals: Vital Signs Temp Pulse Resp BP Pulse Ox 97.8 F 77 18 134/49 98 12/27/17 07:47 12/27/17 12:14 12/27/17 11:07 12/27/17 12:14 12/27/17 10:00 Temperature -Last 24 Hours Temperature 97.8 F Temperature 97.5 F Temperature 97.7 F Temperature 97.7 F - Labs CBC & Chem 7: 12/27/17 04:46 12/27/17 04:46 Labs: Abnormal lab results 12/27/17 12/27/17 Range/Units 04:46 04:46 WBC 2.5 L (4.5-11.0) K/mm3 RBC 2.73 L (3.65-5.03) M/mm3 Hgb 8.2 L (10.1-14.3) gm/dl Hct 25.0 L (30.3-42.9) % Sodium 130 L (137-145) mmol/L Potassium 3.3 L (3.6-5.0) mmol/L Chloride 90.2 L (98-107) mmol/L Carbon Dioxide 31 H (22-30) mmol/L BUN 6 L (7-17) mg/dL Creatinine 0.2 L (0.7-1.2) mg/dL Glucose 135 H (65-100) mg/dL Calcium 8.3 L (8.4-10.2) mg/dL
--- NOTE | 2017-12-27 10:03 | Consultation ---
History of Present Illness - Reason for Consult Consult date: 12/27/17 hyponatremia - History of Present Illness This is a 67 year old female with who presented to the E.R on 12/23/17 with a chief complaint of having productive cough and shortness of breath that started on Tuesday evening. Patient states she got her first dose of chemotherapy for Esophageal cancer last week Tuesday and the next day on Tuesday she states she began to cough and had shortness of breath and on Tuesday she decided to come to this E.R for evaluation as her symptoms were getting worse. CXR done showed-Right lower lobe infiltrate. CT of Abdomen/Pelvis - revealed extensive Pneumonia involving right lower lobe and right middle lobe with bilateral pleural effusion. ID was consulted and patient was placed on Pneumonia protocol on IV antibiotics. Patient states due to her esophageal cancer she was not eating well and a feeding tube was placed 4-5 weeks ago. Patient has history of Hypertension, Osteoporosis, Esophageal cancer and COPD. Patient was noted to be Hyponatremic on admission with a sodium level of 122 which has improved to 130 today. We are being consulted for management of this patient's Hyponatremia. Past History Past Medical History: cancer (advanced esophageal cancer), COPD, hypertension Past Surgical History: No surgical history Social history: , other (social drinking). denies: smoking Family history: denies: CAD Medications and Allergies Allergies Allergy/AdvReac Type Severity Reaction Status Date / Time No Known Allergies Allergy Verified 03/29/14 11:00 Home Medications Medication Instructions Recorded Confirmed Last Taken Type Alendronate Sodium [Fosamax] 70 mg PO QWEEK 03/29/14 12/26/17 03/25/14 20:00 History Amlodipine Bes/Olmesartan Med 1 tab PO DAILY 03/29/14 12/26/17 03/29/14 08:00 History [Jeffery 10-20 mg] Lisinopril 10 mg PO BID 03/29/14 12/26/17 03/29/14 08:00 History Carvedilol [Coreg] 3.125 mg PO DAILY 12/23/17 12/26/17 Unknown History HYDROcodone/ACETAMINOPHEN 1 each PO PRN 12/23/17 12/26/17 Unknown History [Hydrocodone-Acetamin 10-325 mg] Sucralfate [Carafate] 1 gm PO QAC 12/23/17 12/26/17 Unknown History Enoxaparin [Lovenox] 40 mg SQ Q12HR 12/24/17 12/24/17 2 Days Ago History ~12/22/17 Active Meds: Active Medications Acetaminophen (Tylenol) 650 mg PO Q4H PRN PRN Reason: Pain MILD(1-3)/Fever >100.5/MORALES Albuterol (Proventil) 2.5 mg IH Q3HRT PRN PRN Reason: Shortness Of Breath Last Admin: 12/25/17 04:34 Dose: 2.5 mg Albuterol/Ipratropium (Duoneb *Not For Prn Use*) 1 ampul IH Q4HRT [facility] Last Admin: 12/27/17 03:56 Dose: 1 ampul Alendronate Sodium (Fosamax) 70 mg PO QWEEK [facility] Lipase/Protease/Amylase (Pancreaze Dr 10,500 Unit) 1 each FEEDTUBE PRN PRN PRN Reason: For Clogged Feeding Tube Diltiazem HCl (Cardizem) 30 mg PO Q6HR [facility] Last Admin: 12/27/17 06:41 Dose: 30 mg Enoxaparin Sodium (Lovenox) 40 mg SUB-Q QDAY@2200 [facility] Last Admin: 12/26/17 21:47 Dose: 40 mg Hydromorphone HCl (Dilaudid) 0.25 mg IV Q4H PRN PRN Reason: Pain , Severe (7-10) Last Admin: 12/27/17 08:39 Dose: 0.25 mg Vancomycin HCl 500 mg/ Sodium (Chloride) 110 mls @ 55 mls/hr IV Q12H [facility] Last Admin: 12/27/17 06:42 Dose: 55 mls/hr Piperacillin Sod/Tazobactam Sod (Zosyn/Ns 4.5gm/100ml) 4.5 gm in 100 mls @ 200 mls/hr IV Q8H [facility]; Protocol Last Admin: 12/27/17 00:50 Dose: 200 mls/hr Morphine Sulfate (Ms Contin Er) 30 mg PO Q12HR [facility] Last Admin: 12/26/17 21:47 Dose: 30 mg Ondansetron HCl (Zofran) 4 mg IV Q4H PRN PRN Reason: Nausea And Vomiting Simple Syrup (Simple Syrup) 15 ml FEEDTUBE PRN PRN PRN Reason: Hypoglycemia Simple Syrup (Simple Syrup) 30 ml FEEDTUBE PRN PRN PRN Reason: Hypoglycemia Sodium Bicarbonate (Sodium Bicarbonate) 325 mg FEEDTUBE PRN PRN PRN Reason: For Clogged Feeding Tube Sodium Chloride (Sodium Chloride Flush Syringe 10 Ml) 10 ml IV BID [facility] Last Admin: 12/26/17 21:48 Dose: 10 ml Sodium Chloride (Sodium Chloride Flush Syringe 10 Ml) 10 ml IV PRN PRN PRN Reason: LINE FLUSH Sucralfate (Carafate) 1 gm PO QAC [facility] Last Admin: 12/26/17 17:30 Dose: 1 gm Review of Systems Constitutional: weight loss, fatigue, weakness, poor appetite, chronic pain, no weight gain, no fever, no chills, no sweats, no night sweats, no daytime sleepiness Ears, nose, mouth and throat: no ear pain, no ear discharge, no tinnitis, no decreased hearing, no nose pain Breasts: deferred Cardiovascular: shortness of breath, dyspnea on exertion, high blood pressure, leg edema, decreased exercise tolerance, no chest pain, no orthopnea, no palpitations, no rapid/irregular heart beat, no edema, no syncope, no paroxysmal nocturnal dyspnea, no claudication Respiratory: cough, cough with sputum, excessive sputum, shortness of breath, dyspnea on exertion, congestion Gastrointestinal: loss of appetite, no abdominal pain, no nausea, no vomiting, no diarrhea, no constipation, no change in bowel habits Genitourinary Female: no pelvic pain, no flank pain, no menorrhagia, no dysuria , no urinary frequency, no urgency, no stress incontinence, no post void dribbling Rectal: no pain, no incontinence, no bleeding, no itching, no hemorrhoids Musculoskeletal: muscle weakness, no neck stiffness, no neck pain, no shooting arm pain, no arm numbness/tingling, no low back pain, no shooting leg pain, no leg numbness/tingling, no redness of joints Integumentary: rash, no pruritis, no redness, no sores, no wounds, no jaundice Neurological: no paralysis, no weakness, no parathesias, no numbness, no tingling, no seizures, no syncope Psychiatric: change in appetite, no anxiety, no memory loss, no change in sleep habits, no insomnia Exam - Vital Signs Vital signs: Vital Signs BP 156/79 12/23/17 19:16 - General Appearance General appearance: well-developed, appears stated age, chronically ill, fatigue , frail EENT: ATNC, PERRL, hearing intact, vision intact Neck: Present: neck supple, trachea midline Respiratory: Decreased Breath Sounds Heart: regular, S1S2 Gastrointestinal: Present: normoactive bowel sounds, other (Feeding tube (Peg tube) intact to abdomen) Integumentary: warm and dry Neurologic: alert and oriented x3 Musculoskeletal: Present: other (mild edema) Psychiatric: mood/affect appropriate, cooperative Results - Lab Results 12/27/17 04:46 12/27/17 04:46 Most recent lab results Calcium 8.3 mg/dL (8.4-10.2) L 12/27/17 04:46 Magnesium 1.70 mg/dL (1.7-2.3) 12/27/17 04:46 Assessment and Plan Pneumonia: COPD: Acute Hypoxic Respiratory Failure -CT of Abdomen/Pelvis-Extensive Pneumonia involving right lower lobe and right middle lobe with bilateral plueral effusion -On IV antibiotics- Zosyn and Vancomycin -Nebulizer treatments -ID onboard 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
--- NOTE | 2017-12-27 10:46 | Event Note ---
Date: 12/27/17 esophageal ca - s/p chemo pt follows dr rollins [facility] cancer [id number]
[2017-12-27] MEDS ORDERED: K-DUR PO ONE ×2 (10:56→12:30)
[2017-12-27] MEDS: CARAFATE PO SCH ×2 (11:47→18:43)
[2017-12-27] MEDS: MS CONTIN ER PO SCH ×2 (11:54→21:22)
--- NOTE | 2017-12-27 12:28 | Gastroenterology Progress Note ---
Assessment and Plan 1. Esophageal cancer - advanced (s/p esophageal stent placement). Pt is undergoing aggressive treatment by Oncology, and followed by Thoracic Surgery at [place]. - This likely also accounts for the ascites. - Once patient improves regarding pneumonia, would have her follow back up with her oncologist. 2. Cough/pneumonia - most c/w aspiration pneumonia -will order gastrograffin swallow study today to r/o tracheoesophageal fistula -continue abx and supportive care -will follow Subjective Date of service: 12/27/17 Principal diagnosis: Esophageal CA, ascites, pneumonia Interval history: Patient w/o acute distress. Reports feeling better today with SOB improved. Denies abd pain or N/V. Objective - Constitutional Vitals: Temp Pulse Resp BP Pulse Ox 97.8 F 77 18 134/49 98 12/27/17 07:47 12/27/17 12:14 12/27/17 11:07 12/27/17 12:14 12/27/17 10:00 General appearance: no acute distress, cachectic - Respiratory Respiratory: bilateral: diminished - Cardiovascular Rhythm: regular Heart Sounds: Present: S1 & S2 - Gastrointestinal General gastrointestinal: Present: soft, non-tender, non-distended, normal bowel sounds, other (+PEG) - Neurologic Neurological: alert and oriented x3 - Labs CBC & Chem 7: 12/27/17 04:46 12/27/17 04:46 Labs: Laboratory Results - last 24 hr 12/27/17 12/27/17 04:46 04:46 WBC 2.5 L RBC 2.73 L Hgb 8.2 L Hct 25.0 L MCV 92 MCH 30 MCHC 33 RDW 14.5 Plt Count 185 Sodium 130 L Potassium 3.3 L Chloride 90.2 L Carbon Dioxide 31 H Anion Gap 12 BUN 6 L Creatinine 0.2 L Estimated GFR > 60 BUN/Creatinine Ratio 30 Glucose 135 H Calcium 8.3 L Magnesium 1.70
--- NOTE | 2017-12-27 12:45 | Progress Note ---
Assessment and Plan Echo reviewed - TDS, EF 45-50%, subcostal views suggest mild compression of LA from extracardiac mass. Cont present cardiac regimen. The patient has been seen in conjunction with Dr. Keyes who agrees with the assessment and plan of care. - Patient Problems (1) Pneumonia Current Visit: Yes Status: Acute Qualifiers: Pneumonia type: due to unspecified organism Laterality: right Lung location: lower lobe of lung Qualified Code(s): J18.1 - Lobar pneumonia, unspecified organism (2) Acute respiratory failure Current Visit: Yes Status: Acute (3) COPD exacerbation Current Visit: Yes Status: Acute (4) Elevated troponin Current Visit: Yes Status: Acute (5) Esophageal cancer Current Visit: Yes Status: Chronic (6) Hypertension Current Visit: Yes Status: Chronic Qualifiers: Hypertension type: essential hypertension Qualified Code(s): I10 - Essential (primary) hypertension (7) Anemia Current Visit: Yes Status: Acute Subjective Date of service: 12/27/17 Principal diagnosis: Esophageal CA, ascites, pneumonia Interval history: pt resting in bed, states SOB is improving. on O2 via venti-mask. Objective Last Vital Signs Temp 97.8 F 12/27/17 07:47 Pulse 77 12/27/17 12:14 Resp 18 12/27/17 11:07 BP 134/49 12/27/17 12:14 Pulse Ox 98 12/27/17 10:00 - Physical Examination General: No Apparent Distress HEENT: Positive: EOMI, Normocephaly, Mucus Membranes Moist Neck: Positive: neck supple, trachea midline Cardiac: Positive: Reg Rate and Rhythm, S1/S2 Lungs: Positive: Decreased Breath Sounds, Rhonchi, Oxygen Neuro: Positive: Grossly Intact Abdomen: Positive: Soft, Active Bowel Sounds. Negative: Tender Skin: Positive: Clear. Negative: Rash Musculoskeletal: Normal Range of Motion Extremities: Present: edema (trace BLE) - Labs and Meds CBC 12/27/17 Range/Units 04:46 WBC 2.5 L (4.5-11.0) K/mm3 RBC 2.73 L (3.65-5.03) M/mm3 Hgb 8.2 L (10.1-14.3) gm/dl Hct 25.0 L (30.3-42.9) % Plt Count 185 (140-440) K/mm3 Comprehensive Metabolic Panel 12/27/17 Range/Units 04:46 Sodium 130 L (137-145) mmol/L Potassium 3.3 L (3.6-5.0) mmol/L Chloride 90.2 L (98-107) mmol/L Carbon Dioxide 31 H (22-30) mmol/L BUN 6 L (7-17) mg/dL Creatinine 0.2 L (0.7-1.2) mg/dL Glucose 135 H (65-100) mg/dL Calcium 8.3 L (8.4-10.2) mg/dL - Imaging and Cardiology EKG: image reviewed - EKG Sinus rhythms and dysrhythmias: sinus tachycardia Myocardial infarction: septal [place] (old age or ind
--- NOTE | 2017-12-27 14:17 | Progress Note ---
Assessment and Plan Assessment and plan: Patient is a 58 woman with a history of esophageal Cancer on Chemotherapy ( finished this week) with PEG tube feeding but takes clear liquid diet with meds , End stage COPD, osteoporosis, hypertension and GERD who presents to [facility] ED with abdominal pains due to severe productive cough and SOB * CT abd/pelvis wo contrast IMPRESSION: Extensive pneumonia involving the right lower lobe and right middle lobe with bilateral pleural effusions. Ascites. No definite acute process in the abdomen and pelvis. Distended urinary bladder. Arthritic changes in the lumbar spine. * pCXR IMPRESSION: Right lower lung infiltrate. Sepsis due to Pneumonia, poa with GP bacteremia: treat with abx, blood culture are growing GPC, started IV Vancomycin with close monitoring Aspiration RML and RLL Pneumonia, poa: treat with IV abx: IV vanc, iv zosyn and iv levaquin Acute hypoxic respiratory failure was on 5 liters of O2 (new to O2), poa: treat with O2, with daily weaning attempts, added DuoNebs Abdominal pains with new onset Ascites, related to Esophageal cancer per GI, Barium swallow neg for fistula Abnormal cardiac enzymes with elevated troponin: d/w Cardiology, Dr. Goss, unlikely ACS, ECHO pending Hyponatremia, severe, consider paraneoplastic syndrome: treat with IVF, recheck bmp today Hypertension: iv prn antihypertensives as needed COPD: treat with duonebs, steroids on hold due to the sepsis and immunocompromised state History of IJ clot, hypercoagable state: on DVT prophylaxis with lovenox History of esophageal cancer with PEG tube but takes some liquids by mouth: Clin Nurse consulted for tube feedings Severe protein malnutrition, bmi 15: consulted Clin Nurse DVT prophylaxis: sq lovenox Advance care planning: she wants to be full code, at bedside Disposition: continue inpatient care, await blood culture to be finalized, consulted ID today, ECHO done but reading pending and try to wean off O2 daily, start to arrange home o2 Echo pending History Interval history: General.: Appears well, no distress, nontoxic HEENT: Moist mucous membranes, extraocular muscles intact, no lymphadenopathy Neck: supple Cardiac: S1-S2 heard Lungs: clear to auscultation bilaterally Abdomen: soft , nontender, nondistended, bowel sounds positive Extremities: no edema clubbing or cyanosis Skin: no rash or lesions Neurologic: no gross focal deficits Psych: appropriate behavior, appropriate mood, corporative, judgment intact Hospitalist Physical - Physical exam Narrative exam: Review of systems Constitutional: No fevers, no malaise, no joint pains CVS: No chest pain, no orthopnea, no dyspnea on exertion, no pedal edema GI: No abdominal pain, no diarrhea, no vomiting, no constipation Respiratory: No shortness of breath, no wheezing, no coughing - Constitutional Vitals: Temp Pulse Resp BP Pulse Ox 97.8 F 77 18 134/49 98 12/27/17 07:47 12/27/17 12:14 12/27/17 11:07 12/27/17 12:14 12/27/17 10:00 General appearance: Present: cachectic Results - Labs CBC & Chem 7: 12/28/17 05:41 12/29/17 03:31 Labs: Laboratory Last Values WBC 2.5 K/mm3 (4.5-11.0) L 12/27/17 04:46 RBC 2.73 M/mm3 (3.65-5.03) L 12/27/17 04:46 Hgb 8.2 gm/dl (10.1-14.3) L 12/27/17 04:46 Hct 25.0 % (30.3-42.9) L 12/27/17 04:46 MCV 92 fl (79-97) 12/27/17 04:46 MCH 30 pg (28-32) 12/27/17 04:46 MCHC 33 % (30-34) 12/27/17 04:46 RDW 14.5 % (13.2-15.2) 12/27/17 04:46 Plt Count 185 K/mm3 (140-440) 12/27/17 04:46 Add Manual Diff Complete 12/24/17 06:58 Total Counted 100 12/24/17 06:58 Seg Neutrophils % Lawn And Garden Technician 12/24/17 06:58 Seg Neuts % (Manual) 100.0 % (40.0-70.0) H 12/24/17 06:58 Band Neutrophils % 0 % 12/24/17 06:58 Lymphocytes % (Manual) 0 % (13.4-35.0) L 12/24/17 06:58 Reactive Lymphs % (Man) 0 % 12/24/17 06:58 Monocytes % (Manual) 0 % (0.0-7.3) 12/24/17 06:58 Eosinophils % (Manual) 0 % (0.0-4.3) 12/24/17 06:58 Basophils % (Manual) 0 % (0.0-1.8) 12/24/17 06:58 Metamyelocytes % 0 % 12/24/17 06:58 Myelocytes % 0 % 12/24/17 06:58 Promyelocytes % 0 % 12/24/17 06:58 Blast Cells % 0 % 12/24/17 06:58 Nucleated RBC % Not Reportable 12/24/17 06:58 Seg Neutrophils # Man 23.3 K/mm3 (1.8-7.7) H 12/24/17 06:58 Band Neutrophils # 0.0 K/mm3 12/24/17 06:58 Lymphocytes # (Manual) 0.0 K/mm3 (1.2-5.4) L 12/24/17 06:58 Abs React Lymphs (Man) 0.0 K/mm3 12/24/17 06:58 Monocytes # (Manual) 0.0 K/mm3 (0.0-0.8) 12/24/17 06:58 Eosinophils # (Manual) 0.0 K/mm3 (0.0-0.4) 12/24/17 06:58 Basophils # (Manual) 0.0 K/mm3 (0.0-0.1) 12/24/17 06:58 Metamyelocytes # 0.0 K/mm3 12/24/17 06:58 Myelocytes # 0.0 K/mm3 12/24/17 06:58 Promyelocytes # 0.0 K/mm3 12/24/17 06:58 Blast Cells # 0.0 K/mm3 12/24/17 06:58 WBC Morphology Not Reportable 12/24/17 06:58 Hypersegmented Neuts Not Reportable 12/24/17 06:58 Hyposegmented Neuts Not Reportable 12/24/17 06:58 Hypogranular Neuts Not Reportable 12/24/17 06:58 Smudge Cells Not Reportable 12/24/17 06:58 Toxic Granulation Not Reportable 12/24/17 06:58 Toxic Vacuolation Not Reportable 12/24/17 06:58 Dohle Bodies Not Reportable 12/24/17 06:58 Pelger-Huet Anomaly Not Reportable 12/24/17 06:58 Mc Rods Not Reportable 12/24/17 06:58 Platelet Estimate Consistent w auto 12/24/17 06:58 Clumped Platelets Not Reportable 12/24/17 06:58 Plt Clumps, EDTA Not Reportable 12/24/17 06:58 Large Platelets Not Reportable 12/24/17 06:58 Giant Platelets Not Reportable 12/24/17 06:58 Platelet Satelliting Not Reportable 12/24/17 06:58 Plt Morphology Comment Not Reportable 12/24/17 06:58 RBC Morphology Normal 12/24/17 06:58 Dimorphic RBCs Not Reportable 12/24/17 06:58 Polychromasia Not Reportable 12/24/17 06:58 Hypochromasia Not Reportable 12/24/17 06:58 Poikilocytosis Not Reportable 12/24/17 06:58 Anisocytosis Not Reportable 12/24/17 06:58 Microcytosis Not Reportable 12/24/17 06:58 Macrocytosis Not Reportable 12/24/17 06:58 Spherocytes Not Reportable 12/24/17 06:58 Pappenheimer Bodies Not Reportable 12/24/17 06:58 Sickle Cells Not Reportable 12/24/17 06:58 Target Cells Not Reportable 12/24/17 06:58 Tear Drop Cells Not Reportable 12/24/17 06:58 Ovalocytes Not Reportable 12/24/17 06:58 Helmet Cells Not Reportable 12/24/17 06:58 Mcfarland-Wren Bodies Not Reportable 12/24/17 06:58 [place] Rings Not Reportable 12/24/17 06:58 [place] Cells Not Reportable 12/24/17 06:58 Bite Cells Not Reportable 12/24/17 06:58 Crenated Cell Not Reportable 12/24/17 06:58 Elliptocytes Not Reportable 12/24/17 06:58 Acanthocytes (Spur) Not Reportable 12/24/17 06:58 Rouleaux Not Reportable 12/24/17 06:58 Hemoglobin C Crystals Not Reportable 12/24/17 06:58 Schistocytes Not Reportable 12/24/17 06:58 Malaria parasites Not Reportable 12/24/17 06:58 Matt Bodies Not Reportable 12/24/17 06:58 Hem Pathologist Commnt No 12/24/17 06:58 PT 13.8 Sec. (12.2-14.9) 12/23/17 20:03 INR 1.01 (0.87-1.13) 12/23/17 20:03 APTT 31.3 Sec. (24.2-36.6) 12/23/17 20:03 Sodium 130 mmol/L (137-145) L 12/27/17 04:46 Potassium 3.3 mmol/L (3.6-5.0) L 12/27/17 04:46 Chloride 90.2 mmol/L (98-107) L 12/27/17 04:46 Carbon Dioxide 31 mmol/L (22-30) H 12/27/17 04:46 Anion Gap 12 mmol/L 12/27/17 04:46 BUN 6 mg/dL (7-17) L 12/27/17 04:46 Creatinine 0.2 mg/dL (0.7-1.2) L 12/27/17 04:46 Estimated GFR > 60 ml/min 12/27/17 04:46 BUN/Creatinine Ratio 30 % 12/27/17 04:46 Glucose 135 mg/dL (65-100) H 12/27/17 04:46 Calcium 8.3 mg/dL (8.4-10.2) L 12/27/17 04:46 Magnesium 1.70 mg/dL (1.7-2.3) 12/27/17 04:46 Total Bilirubin 0.40 mg/dL (0.1-1.2) 12/23/17 20:03 AST 16 units/L (5-40) 12/23/17 20:03 ALT 28 units/L (7-56) 12/23/17 20:03 Alkaline Phosphatase 117 units/L (35-129) 12/23/17 20:03 Total Creatine Kinase 23 units/L (30-135) L 12/24/17 06:58 CK-MB (CK-2) 3.7 ng/mL (0.0-4.0) 12/24/17 06:58 CK-MB (CK-2) Rel Index 16.0 (0-4) H 12/24/17 06:58 Troponin T 0.049 ng/mL (0.00-0.029) H D 12/24/17 06:58 NT-Pro-B Natriuret Pep 819.6 pg/mL (0-900) 12/23/17 20:03 Total Protein 5.2 g/dL (6.3-8.2) L 12/23/17 20:03 Albumin 2.4 g/dL (3.9-5) L 12/23/17 20:03 Albumin/Globulin Ratio 0.9 % 12/23/17 20:03 Triglycerides 83 mg/dL (2-149) 12/23/17 20:03 Cholesterol 92 mg/dL (50-199) 12/23/17 20:03 LDL Cholesterol Direct 52 mg/dL (50-130) 12/23/17 20:03 HDL Cholesterol 27 mg/dL (40-59) L 12/23/17 20:03 Cholesterol/HDL Ratio 3.40 % 12/23/17 20:03
--- NOTE | 2017-12-27 15:21 | Fluoroscopy Report ---
BARIUM SWALLOW History: Rule out tracheoesophageal fistula. Findings: 28 fluoroscopic images were captured during ingestion of Gastrografin agent under fluoroscopy. An esophageal stent is in position. There is mild irregularity just distal to the stent in the distal esophagus which probably represents esophageal tumor. There is no evidence for tracheoesophageal fistula or obstruction. There was mild delay in esophageal emptying throughout this exam. Impression: No tracheoesophageal fistula is detected.
[2017-12-27 16:52] LABS: Osmolality,Urine 452 Mosm/kg
[2017-12-27] MEDS: SODIUM CHLORIDE FLUSH SYRINGE 10 ML IV SCH ×2 (18:47→21:26)
[2017-12-27] MEDS: LOVENOX SUB-Q SCH (21:22)
[2017-12-27] MEDS: PROVENTIL IH PRN (22:55)
[2017-12-28] MEDS: DUONEB *Not for PRN Use IH SCH ×7 (00:34→23:42)
[2017-12-28] MEDS: ZOSYN/NS 4.5GM/100ML 4.5 GM/100 ML VIAL IV SCH ×3 (01:14→16:18)
[2017-12-28] MEDS: CARDIZEM PO SCH ×4 (01:24→17:24)
--- NOTE | 2017-12-28 01:32 | Consultation ---
REFERRING PHYSICIAN: Dr. Gongora. REASON FOR CONSULTATION: Esophageal cancer. HISTORY OF PRESENT ILLNESS: I saw the patient, a 67-year-old female in the medical floor. Her was present in the room. The patient came to the hospital because of shortness of breath. The patient was diagnosed with esophageal cancer in late October/early November [address] Jimenez. The patient was seen by thoracic surgeon at [place]. Esophageal stent and a G-tube was placed. Port-A-Cath was placed and the patient has had chemotherapy by Dr. Alicea. The patient does not know the name of the medication. It appears the patient received Neulasta patch and was discharged. The patient came to the hospital because of shortness of breath. She appears emaciated. The patient was diagnosed as pneumonia and has been given antibiotics. At this time, complaining of weakness, fatigue, and loss of weight. Most of the nourishment is through PEG tube. The patient also had abdominal pain. PAST MEDICAL HISTORY: As above, esophageal cancer, COPD, hypertension, GERD. PAST SURGICAL HISTORY: PEG tube, esophageal stent placement and Port-A-Cath. SOCIAL HISTORY: No history of tobacco or alcohol usage. FAMILY HISTORY: Hypertension. ALLERGIES: None. PRESENT MEDICATIONS: Include Tylenol, albuterol, alendronate, lipase, diltiazem, Lovenox, Dilaudid, and Zosyn. PHYSICAL EXAMINATION: VITAL SIGNS: Temperature 97.8, pulse 97, respiration is 14, BP is 134/49. GENERAL: On examination, emaciated, pallor present. No icterus. Port present. LUNGS: Clear to auscultation anteriorly, decreased air entry in the bases. ABDOMEN: PEG tube present, slightly distended. EXTREMITIES: No calf. NEUROLOGIC: Alert, awake, answers questions appropriately. LABORATORY DATA: White cell 2.5, hemoglobin 8.2, MCV 92, and platelet 185. Potassium 3.3, creatinine 0.2, calcium 8.3, and bilirubin 0.4. RADIOLOGY: CT of the pelvis was done on 12/23/2017, extensive pneumonia, right lower lobe, ascites. ASSESSMENT AND PLAN: 1. Esophageal cancer. Details of this is not clear. The patient follows Dr. Alicea at [facility]. The patient's diagnosis was done a few weeks ago and the patient had Port-A-Cath placement, esophageal stent and PEG tube placement. The patient does not remember chemotherapy, but it appears the patient received Neulasta patch. At admission, white cell count was high and now it is on the lower side. 2. Ascites. 3. Emaciated. 4. Anemia. This may be chemo related. 5. Admitted with shortness of breath, being treated for pneumonia and sepsis. leukocyctosis sec to gCSF I will follow the patient during inpatient stay and the patient will follow up with Dr. Alicea at [facility] once discharged. JOB# [id number] CORINA/TOBIN MTDD
[2017-12-28 05:53] LABS: Basophils % (Auto) 0.2 % (0.0-1.8); Eosinophils % (Auto) 0.3 % (0.0-4.3); Hematocrit 22.9 % (30.3-42.9); Hemoglobin 7.6 gm/dl (10.1-14.3); Lymphocytes # (Auto) 0.4 K/mm3 (1.2-5.4); Lymphocytes % (Auto) 9.6 % (13.4-35.0); Mean Corpuscular HGB Conc 33 % (30-34); Mean Corpuscular Hemoglobin 30 pg (28-32); Mean Corpuscular Volume 91 fl (79-97); Monocytes # (Auto) 0.6 K/mm3 (0.0-0.8); Monocytes % (Auto) 14.1 % (0.0-7.3); Platelet Count 176 K/mm3 (140-440); Red Blood Count 2.52 M/mm3 (3.65-5.03); Red Cell Distribution Width 14.8 % (13.2-15.2)
[2017-12-28 06:18] LABS: BUN/Creatinine Ratio 30; Blood Urea Nitrogen 9 mg/dL (7-17); Calcium 8.7 mg/dL (8.4-10.2); Hemolysis Index 0
[2017-12-28] MEDS ORDERED: POTASSIUM CHLORIDE FEEDTUBE ONE (06:41)
[2017-12-28] MEDS: VANCOMYCIN 500 MG in NACL 0.9% 100 ML IV SCH (06:51)
--- NOTE | 2017-12-28 09:32 | Progress Note ---
Assessment and Plan 67-year-old female with recently diagnosed esophageal cancer, COPD/emphysema, currently on chemotherapy, last dose was on Tuesday admitted with: 1) Sepsis Resolved, likely secondary to extensive right middle and lower lobe pneumonia. It seems she did receive GM-CSF post chemotherapy, which may also be contributing to the WBC count. Blood cultures continue to reveal no growth to date. 2) Acute hypoxic respiratory failure secondary to extensive pneumonia on top of underlying COPD: Supplement oxygen as needed. Continue antibiotics as above. 3) Coagulase-negative staph bacteremia: 3 out of 4 bottles positive. Transthoracic echocardiogram revealed mild left ventricular hypertrophy. Sputum culture contaminated. Will continue broad spectrum coverage of IV Zosyn and Vancomycin for now. 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 5) Severe protein calorie malnutrition: Patient's weight is 36 kg with a BMI of 15.5. Antibiotics will need to be adjusted accordingly. Recs: - continue IV Zosyn, D3 - continue IV Vancomycin, target trough between 10-20 mcg/ml Subjective Date of service: 12/28/17 Principal diagnosis: Esophageal CA, ascites, pneumonia Interval history: Patient sitting up in bed receiving breathing treatment. Patient reports improvement with shortness of breath. Reports no side effects from antibiotic regimen. Patient currently remains of venti-mask, reports coughing up brownish sputum. Discussed with bedside RN. Current Antimicrobials Zosyn Vancomycin Objective - Exam Narrative Exam: Constitutional: Alert, cooperative. No acute distress Head, Ears, Nose: Normocephalic, atraumatic. External ears, nose normal Eyes: Conjunctivae/corneas clear. No icterus. No ptosis. Neck: Supple, no meningeal signs Oral: dentition fair, no thrush Cardiovascular: S1, S2 normal. Respiratory: Good air entry, clear to auscultation bilaterally GI: Soft, non-tender; bowel sounds normal. No peritoneal signs Musculoskeletal: No pedal edema, no cyanosis. Left arm AVF site with mild warmth and induration, no purulence or fluctuant swelling Skin: No rash or abscess Hem/Lymphatic: No palpable cervical or supraclavicular nodes. No lymphangitis Psych: Mood ok. Affect normal Neurological: Awake, alert, oriented. No gross abnormality - Constitutional Vitals: Vital Signs Temp Pulse Resp BP Pulse Ox 97.6 F 102 H 20 136/63 97 12/28/17 07:30 12/28/17 09:02 12/28/17 09:02 12/28/17 07:30 12/28/17 08:55 Temperature -Last 24 Hours Temperature 97.6 F Temperature 98.7 F Temperature 98.0 F Temperature 97.9 F - Labs CBC & Chem 7: 12/28/17 05:41 12/28/17 05:41 Labs: Abnormal lab results 12/27/17 12/27/17 12/28/17 Range/Units 17:19 22:49 05:41 RBC 2.52 L (3.65-5.03) M/mm3 Hgb 7.6 L (10.1-14.3) gm/dl Hct 22.9 L (30.3-42.9) % Lymph % (Auto) 9.6 L (13.4-35.0) % [place] % (Auto) 14.1 H (0.0-7.3) % Lymph # 0.4 L (1.2-5.4) K/mm3 Seg Neutrophils % 75.8 H (40.0-70.0) % POC ABG pCO2 47.2 H (35-45) POC ABG pO2 60 L (80-105) Sodium (137-145) mmol/L Potassium (3.6-5.0) mmol/L Chloride (98-107) mmol/L Carbon Dioxide (22-30) mmol/L Creatinine (0.7-1.2) mg/dL Glucose (65-100) mg/dL Vancomycin Trough 4.2 L (5.0-20.0) ug/mL 12/28/17 Range/Units 05:41 RBC (3.65-5.03) M/mm3 Hgb (10.1-14.3) gm/dl Hct (30.3-42.9) % Lymph % (Auto) (13.4-35.0) % [place] % (Auto) (0.0-7.3) % Lymph # (1.2-5.4) K/mm3 Seg Neutrophils % (40.0-70.0) % POC ABG pCO2 (35-45) POC ABG pO2 (80-105) Sodium 133 L (137-145) mmol/L Potassium 2.6 L* D (3.6-5.0) mmol/L Chloride 92.6 L (98-107) mmol/L Carbon Dioxide 31 H (22-30) mmol/L Creatinine 0.3 L (0.7-1.2) mg/dL Glucose 180 H (65-100) mg/dL Vancomycin Trough (5.0-20.0) ug/mL
[2017-12-28] MEDS ORDERED: K-DUR PO SCH ×2 (10:00→12:00)
[2017-12-28] MEDS: CARAFATE PO SCH ×3 (11:00→16:18)
[2017-12-28] MEDS: MS CONTIN ER PO SCH (11:00)
[2017-12-28] MEDS: VANCOMYCIN/NS 1 GM/250 ML 1 GM/250 ML BAG IV SCH (11:01)
[2017-12-28] MEDS: SODIUM CHLORIDE FLUSH SYRINGE 10 ML IV SCH (11:01)
--- NOTE | 2017-12-28 11:08 | Gastroenterology Progress Note ---
Assessment and Plan 1.esophageal cancer -advanced (undergoing treatment by oncology and followed by thoracic surgery at [place]) -likely accounts for ascites -s/p esophageal stent placement 2.cough/pneumonia -most c/w aspiration pneumonia -gastrograffin swallow study yesterday was negative for tracheoesophageal fistula or obstruction -continue abx and supportive care -patient okay to be d/c from GI standpoint once medically stable with recommendations for follow up with her oncology Subjective Date of service: 12/28/17 Principal diagnosis: Esophageal CA, ascites, pneumonia Interval history: Patient w/o acute distress. Reports having a bad night last night due to SOB but is feeling better this am. No abd pain or N/V. Objective - Constitutional Vitals: Temp Pulse Resp BP Pulse Ox 97.6 F 102 H 20 136/63 97 12/28/17 07:30 12/28/17 11:00 12/28/17 09:02 12/28/17 07:30 12/28/17 08:55 General appearance: no acute distress, cachectic - Respiratory Respiratory: bilateral: diminished - Cardiovascular Rhythm: other (tachycardia) - Gastrointestinal General gastrointestinal: Present: soft, non-tender, non-distended, normal bowel sounds, other (+PEG) - Neurologic Neurological: alert and oriented x3 - Labs CBC & Chem 7: 12/28/17 05:41 12/28/17 05:41 Labs: Laboratory Results - last 24 hr 12/27/17 12/27/17 12/27/17 14:23 17:19 22:49 WBC RBC Hgb Hct MCV MCH MCHC RDW Plt Count Lymph % (Auto) [place] % (Auto) Eos % (Auto) Baso % (Auto) Lymph # [place] # Eos # Baso # Seg Neutrophils % Seg Neutrophils # POC ABG pH 7.429 POC ABG pCO2 47.2 H POC ABG pO2 60 L POC ABG HCO3 31.3 POC ABG Total CO2 33 POC ABG O2 Sat 91 POC ABG Base Excess 7 FiO2 50 Sodium Potassium Chloride Carbon Dioxide Anion Gap BUN Creatinine Estimated GFR BUN/Creatinine Ratio Glucose Calcium TSH Urine Osmolality 452 Urine Sodium 34 Vancomycin Trough 4.2 L 12/28/17 12/28/17 12/28/17 05:41 05:41 05:41 WBC 4.6 RBC 2.52 L Hgb 7.6 L Hct 22.9 L MCV 91 MCH 30 MCHC 33 RDW 14.8 Plt Count 176 Lymph % (Auto) 9.6 L [place] % (Auto) 14.1 H Eos % (Auto) 0.3 Baso % (Auto) 0.2 Lymph # 0.4 L [place] # 0.6 Eos # 0.0 Baso # 0.0 Seg Neutrophils % 75.8 H Seg Neutrophils # 3.5 POC ABG pH POC ABG pCO2 POC ABG pO2 POC ABG HCO3 POC ABG Total CO2 POC ABG O2 Sat POC ABG Base Excess FiO2 Sodium 133 L Potassium 2.6 L* D Chloride 92.6 L Carbon Dioxide 31 H Anion Gap 12 BUN 9 Creatinine 0.3 L Estimated GFR > 60 BUN/Creatinine Ratio 30 Glucose 180 H Calcium 8.7 TSH 3.750 Urine Osmolality Urine Sodium Vancomycin Trough
--- NOTE | 2017-12-28 11:30 | Progress Note ---
Assessment and Plan Currently stable cardiac status. Cont present cardiac regimen. Nothing further to add from cardiology standpoint at this time. Will sign off. Recommend follow up in our office with Dr. Goss within 1-2 weeks of hospital discharge ([phone]). The patient has been seen in conjunction with Dr. Keyes who agrees with the assessment and plan of care. - Patient Problems (1) Pneumonia Current Visit: Yes Status: Acute Qualifiers: Pneumonia type: due to unspecified organism Laterality: right Lung location: lower lobe of lung Qualified Code(s): J18.1 - Lobar pneumonia, unspecified organism (2) Acute respiratory failure Current Visit: Yes Status: Acute (3) COPD exacerbation Current Visit: Yes Status: Acute (4) Elevated troponin Current Visit: Yes Status: Acute (5) Esophageal cancer Current Visit: Yes Status: Chronic (6) Hypertension Current Visit: Yes Status: Chronic Qualifiers: Hypertension type: essential hypertension Qualified Code(s): I10 - Essential (primary) hypertension (7) Anemia Current Visit: Yes Status: Acute Subjective Date of service: 12/28/17 Principal diagnosis: Esophageal CA, ascites, pneumonia Interval history: pt resting in bed, states SOB is improving. on O2 via venti-mask. Objective Last Vital Signs Temp 97.6 F 12/28/17 07:30 Pulse 102 H 12/28/17 11:00 Resp 20 12/28/17 09:02 BP 136/63 12/28/17 07:30 Pulse Ox 97 12/28/17 08:55 - Physical Examination General: No Apparent Distress HEENT: Positive: EOMI, Normocephaly, Mucus Membranes Moist Neck: Positive: neck supple, trachea midline Cardiac: Positive: Reg Rate and Rhythm, S1/S2 Lungs: Positive: Decreased Breath Sounds Neuro: Positive: Grossly Intact Abdomen: Positive: Soft, Active Bowel Sounds. Negative: Tender Skin: Positive: Clear. Negative: Rash Musculoskeletal: Normal Range of Motion Extremities: Present: edema (trace BLE) - Labs and Meds CBC 12/28/17 Range/Units 05:41 WBC 4.6 (4.5-11.0) K/mm3 RBC 2.52 L (3.65-5.03) M/mm3 Hgb 7.6 L (10.1-14.3) gm/dl Hct 22.9 L (30.3-42.9) % Plt Count 176 (140-440) K/mm3 Lymph # 0.4 L (1.2-5.4) K/mm3 [place] # 0.6 (0.0-0.8) K/mm3 Eos # 0.0 (0.0-0.4) K/mm3 Baso # 0.0 (0.0-0.1) K/mm3 Comprehensive Metabolic Panel 12/28/17 Range/Units 05:41 Sodium 133 L (137-145) mmol/L Potassium 2.6 L* D (3.6-5.0) mmol/L Chloride 92.6 L (98-107) mmol/L Carbon Dioxide 31 H (22-30) mmol/L BUN 9 (7-17) mg/dL Creatinine 0.3 L (0.7-1.2) mg/dL Glucose 180 H (65-100) mg/dL Calcium 8.7 (8.4-10.2) mg/dL - Imaging and Cardiology EKG: image reviewed - EKG Sinus rhythms and dysrhythmias: sinus tachycardia Myocardial infarction: septal [place] (old age or ind
--- NOTE | 2017-12-28 11:38 | Progress Note ---
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: -Sodium level improved to 133 today -S/P IV hydration -On fluid restriction of 1000 ml per day -Goal is to raise serum sodium not more than 8-10 mmol in 24 hours -BMP daily Hypokalemia: -Start KCl 40 meq po or via PEG tube BID -BMP daily Elevated troponin: -Echocardiogram- LVEF 45-50% -Cardiology onboard Hypertension: -Controlled -On Diltiazem Esophageal cancer: Malnutrition: -S/P first chemotherapy treatment last week Tuesday -Has PEG tube for tube feedings -Access Services Representative onboard Osteoporosis: -On Alendronate Subjective Date of service: 12/28/17 Principal diagnosis: Esophageal CA, ascites, pneumonia Interval history: Patient seen lying in bed. Requested her cellphone from the table. In good spirits. Objective - Vital Signs Vital signs: Vital Signs - 12hr 12/28/17 12/28/17 12/28/17 00:34 00:43 01:19 Temperature 98.0 F Pulse Rate 77 Pulse Rate [ Anterior Bilateral Throughout] Pulse Rate [ 94 H 93 H Posterior Bilateral Throughout] Respiratory 18 Rate Respiratory Rate [Anterior Bilateral Throughout] Respiratory 20 20 Rate [Posterior Bilateral Throughout] Blood Pressure Blood Pressure 97/75 [Right] O2 Sat by Pulse 98 Oximetry 12/28/17 12/28/17 12/28/17 04:00 05:28 07:30 Temperature 98.7 F 97.6 F Pulse Rate 103 H 102 H Pulse Rate [ Anterior Bilateral Throughout] Pulse Rate [ 96 H Posterior Bilateral Throughout] Respiratory 17 28 H Rate Respiratory Rate [Anterior Bilateral Throughout] Respiratory 20 Rate [Posterior Bilateral Throughout] Blood Pressure 136/63 Blood Pressure 112/43 [Right] O2 Sat by Pulse 99 98 Oximetry 12/28/17 12/28/17 12/28/17 08:51 08:55 09:02 Temperature Pulse Rate Pulse Rate [ 102 H 102 H Anterior Bilateral Throughout] Pulse Rate [ 102 H 102 H Posterior Bilateral Throughout] Respiratory Rate Respiratory 20 20 Rate [Anterior Bilateral Throughout] Respiratory 20 20 Rate [Posterior Bilateral Throughout] Blood Pressure Blood Pressure [Right] O2 Sat by Pulse 97 Oximetry 12/28/17 12/28/17 11:00 11:17 Temperature 97.4 F L Pulse Rate 102 H 98 H Pulse Rate [ Anterior Bilateral Throughout] Pulse Rate [ Posterior Bilateral Throughout] Respiratory 26 H Rate Respiratory Rate [Anterior Bilateral Throughout] Respiratory Rate [Posterior Bilateral Throughout] Blood Pressure 127/59 Blood Pressure [Right] O2 Sat by Pulse 99 Oximetry - General Appearance General appearance: well-developed, appears stated age, chronically ill, frail EENT: ATNC, PERRL, hearing intact, vision intact Neck: no JVD, supple Respiratory: Present: Clear to Ascultation Cardiology: tachycardia, S1S2 Gastrointestinal: normoactive bowel sounds, other (PEG tube intact) Integumentary: warm and dry Neurologic: alert and oriented x3 Musculoskeletal: other (trrace edema) Psychiatric: mood/affect appropriate, cooperative - Lab 12/28/17 05:41 12/28/17 05:41 Most recent lab results Calcium 8.7 mg/dL (8.4-10.2) 12/28/17 05:41 Magnesium 1.70 mg/dL (1.7-2.3) 12/27/17 04:46 Urine Sodium 34 mmol/L 12/27/17 14:23
--- NOTE | 2017-12-28 12:39 | Progress Note ---
Assessment and Plan Assessment and plan: Patient is a 58 woman with a history of esophageal Cancer on Chemotherapy ( finished this week) with PEG tube feeding but takes clear liquid diet with meds , End stage COPD, osteoporosis, hypertension and GERD who presents to [facility] ED with abdominal pains due to severe productive cough and SOB * CT abd/pelvis wo contrast IMPRESSION: Extensive pneumonia involving the right lower lobe and right middle lobe with bilateral pleural effusions. Ascites. No definite acute process in the abdomen and pelvis. Distended urinary bladder. Arthritic changes in the lumbar spine. * pCXR IMPRESSION: Right lower lung infiltrate. Anemia; transfuse one unit prbc Sepsis due to Pneumonia, poa with GP bacteremia: treat with abx, blood culture are growing GPC, started IV Vancomycin with close monitoring Aspiration RML and RLL Pneumonia, poa: treat with IV abx: IV vanc, iv zosyn and iv levaquin Acute hypoxic respiratory failure was on 5 liters of O2 (new to O2), poa: treat with O2, with daily weaning attempts, added DuoNebs Chronic systolic CHF, EF of 45%, denies orthopnea, no pedal edema Abdominal pains with new onset Ascites, related to Esophageal cancer per GI, Barium swallow neg for fistula Abnormal cardiac enzymes with elevated troponin: d/w Cardiology, Dr. Goss, unlikely ACS, ECHO pending Hyponatremia, severe, consider paraneoplastic syndrome: treat with IVF, recheck bmp today Hypertension: iv prn antihypertensives as needed COPD: treat with duonebs, steroids on hold due to the sepsis and immunocompromised state History of IJ clot, hypercoagable state: on DVT prophylaxis with lovenox History of esophageal cancer with PEG tube but takes some liquids by mouth: Sequins Stringer consulted for tube feedings Severe protein malnutrition, bmi 15: consulted Sequins Stringer DVT prophylaxis: sq lovenox Advance care planning: she wants to be full code, at bedside Disposition: PT consult, for Subacute rehab, vs home with hospice for palliative care Hospitalist Physical - Constitutional Vitals: Temp Pulse Resp BP Pulse Ox 97.4 F L 95 H 20 127/59 99 12/28/17 11:17 12/28/17 12:15 12/28/17 12:15 12/28/17 11:17 12/28/17 11:17 General appearance: Present: cachectic Results - Labs CBC & Chem 7: 12/28/17 05:41 12/28/17 16:02 Labs: Laboratory Last Values WBC 4.6 K/mm3 (4.5-11.0) 12/28/17 05:41 RBC 2.52 M/mm3 (3.65-5.03) L 12/28/17 05:41 Hgb 7.6 gm/dl (10.1-14.3) L 12/28/17 05:41 Hct 22.9 % (30.3-42.9) L 12/28/17 05:41 MCV 91 fl (79-97) 12/28/17 05:41 MCH 30 pg (28-32) 12/28/17 05:41 MCHC 33 % (30-34) 12/28/17 05:41 RDW 14.8 % (13.2-15.2) 12/28/17 05:41 Plt Count 176 K/mm3 (140-440) 12/28/17 05:41 Lymph % (Auto) 9.6 % (13.4-35.0) L 12/28/17 05:41 [place] % (Auto) 14.1 % (0.0-7.3) H 12/28/17 05:41 Eos % (Auto) 0.3 % (0.0-4.3) 12/28/17 05:41 Baso % (Auto) 0.2 % (0.0-1.8) 12/28/17 05:41 Lymph # 0.4 K/mm3 (1.2-5.4) L 12/28/17 05:41 [place] # 0.6 K/mm3 (0.0-0.8) 12/28/17 05:41 Eos # 0.0 K/mm3 (0.0-0.4) 12/28/17 05:41 Baso # 0.0 K/mm3 (0.0-0.1) 12/28/17 05:41 Add Manual Diff Complete 12/24/17 06:58 Total Counted 100 12/24/17 06:58 Seg Neutrophils % 75.8 % (40.0-70.0) H 12/28/17 05:41 Seg Neuts % (Manual) 100.0 % (40.0-70.0) H 12/24/17 06:58 Band Neutrophils % 0 % 12/24/17 06:58 Lymphocytes % (Manual) 0 % (13.4-35.0) L 12/24/17 06:58 Reactive Lymphs % (Man) 0 % 12/24/17 06:58 Monocytes % (Manual) 0 % (0.0-7.3) 12/24/17 06:58 Eosinophils % (Manual) 0 % (0.0-4.3) 12/24/17 06:58 Basophils % (Manual) 0 % (0.0-1.8) 12/24/17 06:58 Metamyelocytes % 0 % 12/24/17 06:58 Myelocytes % 0 % 12/24/17 06:58 Promyelocytes % 0 % 12/24/17 06:58 Blast Cells % 0 % 12/24/17 06:58 Nucleated RBC % Not Reportable 12/24/17 06:58 Seg Neutrophils # 3.5 K/mm3 (1.8-7.7) 12/28/17 05:41 Seg Neutrophils # Man 23.3 K/mm3 (1.8-7.7) H 12/24/17 06:58 Band Neutrophils # 0.0 K/mm3 12/24/17 06:58 Lymphocytes # (Manual) 0.0 K/mm3 (1.2-5.4) L 12/24/17 06:58 Abs React Lymphs (Man) 0.0 K/mm3 12/24/17 06:58 Monocytes # (Manual) 0.0 K/mm3 (0.0-0.8) 12/24/17 06:58 Eosinophils # (Manual) 0.0 K/mm3 (0.0-0.4) 12/24/17 06:58 Basophils # (Manual) 0.0 K/mm3 (0.0-0.1) 12/24/17 06:58 Metamyelocytes # 0.0 K/mm3 12/24/17 06:58 Myelocytes # 0.0 K/mm3 12/24/17 06:58 Promyelocytes # 0.0 K/mm3 12/24/17 06:58 Blast Cells # 0.0 K/mm3 12/24/17 06:58 WBC Morphology Not Reportable 12/24/17 06:58 Hypersegmented Neuts Not Reportable 12/24/17 06:58 Hyposegmented Neuts Not Reportable 12/24/17 06:58 Hypogranular Neuts Not Reportable 12/24/17 06:58 Smudge Cells Not Reportable 12/24/17 06:58 Toxic Granulation Not Reportable 12/24/17 06:58 Toxic Vacuolation Not Reportable 12/24/17 06:58 Dohle Bodies Not Reportable 12/24/17 06:58 Pelger-Huet Anomaly Not Reportable 12/24/17 06:58 Mc Rods Not Reportable 12/24/17 06:58 Platelet Estimate Consistent w auto 12/24/17 06:58 Clumped Platelets Not Reportable 12/24/17 06:58 Plt Clumps, EDTA Not Reportable 12/24/17 06:58 Large Platelets Not Reportable 12/24/17 06:58 Giant Platelets Not Reportable 12/24/17 06:58 Platelet Satelliting Not Reportable 12/24/17 06:58 Plt Morphology Comment Not Reportable 12/24/17 06:58 RBC Morphology Normal 12/24/17 06:58 Dimorphic RBCs Not Reportable 12/24/17 06:58 Polychromasia Not Reportable 12/24/17 06:58 Hypochromasia Not Reportable 12/24/17 06:58 Poikilocytosis Not Reportable 12/24/17 06:58 Anisocytosis Not Reportable 12/24/17 06:58 Microcytosis Not Reportable 12/24/17 06:58 Macrocytosis Not Reportable 12/24/17 06:58 Spherocytes Not Reportable 12/24/17 06:58 Pappenheimer Bodies Not Reportable 12/24/17 06:58 Sickle Cells Not Reportable 12/24/17 06:58 Target Cells Not Reportable 12/24/17 06:58 Tear Drop Cells Not Reportable 12/24/17 06:58 Ovalocytes Not Reportable 12/24/17 06:58 Helmet Cells Not Reportable 12/24/17 06:58 Mcfarland-Maloy Bodies Not Reportable 12/24/17 06:58 [place]brook Rings Not Reportable 12/24/17 06:58 Adama Cells Not Reportable 12/24/17 06:58 Bite Cells Not Reportable 12/24/17 06:58 Crenated Cell Not Reportable 12/24/17 06:58 Elliptocytes Not Reportable 12/24/17 06:58 Acanthocytes (Spur) Not Reportable 12/24/17 06:58 Rouleaux Not Reportable 12/24/17 06:58 Hemoglobin C Crystals Not Reportable 12/24/17 06:58 Schistocytes Not Reportable 12/24/17 06:58 Malaria parasites Not Reportable 12/24/17 06:58 Matt Bodies Not Reportable 12/24/17 06:58 Hem Pathologist Commnt No 12/24/17 06:58 PT 13.8 Sec. (12.2-14.9) 12/23/17 20:03 INR 1.01 (0.87-1.13) 12/23/17 20:03 APTT 31.3 Sec. (24.2-36.6) 12/23/17 20:03 POC ABG pH 7.429 (7.35-7.45) 12/27/17 22:49 POC ABG pCO2 47.2 (35-45) H 12/27/17 22:49 POC ABG pO2 60 (80-105) L 12/27/17 22:49 POC ABG HCO3 31.3 12/27/17 22:49 POC ABG Total CO2 33 12/27/17 22:49 POC ABG O2 Sat 91 12/27/17 22:49 POC ABG Base Excess 7 12/27/17 22:49 FiO2 50 % 12/27/17 22:49 Sodium 133 mmol/L (137-145) L 12/28/17 05:41 Potassium 2.6 mmol/L (3.6-5.0) L* D 12/28/17 05:41 Chloride 92.6 mmol/L (98-107) L 12/28/17 05:41 Carbon Dioxide 31 mmol/L (22-30) H 12/28/17 05:41 Anion Gap 12 mmol/L 12/28/17 05:41 BUN 9 mg/dL (7-17) 12/28/17 05:41 Creatinine 0.3 mg/dL (0.7-1.2) L 12/28/17 05:41 Estimated GFR > 60 ml/min 12/28/17 05:41 BUN/Creatinine Ratio 30 % 12/28/17 05:41 Glucose 180 mg/dL (65-100) H 12/28/17 05:41 Calcium 8.7 mg/dL (8.4-10.2) 12/28/17 05:41 Magnesium 1.70 mg/dL (1.7-2.3) 12/27/17 04:46 Total Bilirubin 0.40 mg/dL (0.1-1.2) 12/23/17 20:03 AST 16 units/L (5-40) 12/23/17 20:03 ALT 28 units/L (7-56) 12/23/17 20:03 Alkaline Phosphatase 117 units/L (35-129) 12/23/17 20:03 Total Creatine Kinase 23 units/L (30-135) L 12/24/17 06:58 CK-MB (CK-2) 3.7 ng/mL (0.0-4.0) 12/24/17 06:58 CK-MB (CK-2) Rel Index 16.0 (0-4) H 12/24/17 06:58 Troponin T 0.049 ng/mL (0.00-0.029) H D 12/24/17 06:58 NT-Pro-B Natriuret Pep 819.6 pg/mL (0-900) 12/23/17 20:03 Total Protein 5.2 g/dL (6.3-8.2) L 12/23/17 20:03 Albumin 2.4 g/dL (3.9-5) L 12/23/17 20:03 Albumin/Globulin Ratio 0.9 % 12/23/17 20:03 Triglycerides 83 mg/dL (2-149) 12/23/17 20:03 Cholesterol 92 mg/dL (50-199) 12/23/17 20:03 LDL Cholesterol Direct 52 mg/dL (50-130) 12/23/17 20:03 HDL Cholesterol 27 mg/dL (40-59) L 12/23/17 20:03 Cholesterol/HDL Ratio 3.40 % 12/23/17 20:03 TSH 3.750 mlU/mL (0.270-4.200) 12/28/17 05:41 Urine Osmolality 452 Mosm/kg 12/27/17 14:23 Urine Sodium 34 mmol/L 12/27/17 14:23 Vancomycin Trough 4.2 ug/mL (5.0-20.0) L 12/27/17 17:19
--- NOTE | 2017-12-28 17:12 | Hem/Onc Progress Note ---
Assessment and Plan esophageal ca h/o Loss of wt SOB - on Rx 1. Esophageal cancer. Details of this is not clear. The patient follows Dr. Alicea at [facility]. The patient's diagnosis was done a few weeks ago and the patient had Port-A-Cath placement, esophageal stent and PEG tube placement. The patient does not remember chemotherapy, but it appears the patient received Neulasta patch. At admission, white cell count was high and now it is on the lower side. 2. Ascites. 3. Emaciated. 4. Anemia. This may be chemo related. 5. Admitted with shortness of breath, being treated for pneumonia and sepsis. leukocytosis sec to GCSF I will follow the patient during inpatient stay and the patient will follow up with Dr. Alicea at [facility] once discharged. - Patient Problems (1) Esophageal cancer Current Visit: Yes Status: Chronic Subjective Date of service: 12/28/17 Principal diagnosis: esophageal ca Interval history: feeling better Objective - Constitutional Vitals: Last Vital Signs Temp 98.2 F 12/28/17 15:00 Pulse 101 H 12/28/17 16:15 Resp 22 12/28/17 16:15 BP 121/53 12/28/17 15:00 Pulse Ox 95 12/28/17 15:00 General appearance: mild distress Performance status: 3-limited selfcare - EENT Eyes: PERRL ENT: clear oral mucosa Lymph node exam: negative cervical, negative supraclavicular - Respiratory Respiratory: bilateral: CTA (anteriorly) - Cardiovascular Heart Sounds: Present: S1 & S2 Extremities: No edema - Gastrointestinal General gastrointestinal: Present: soft, other (PEG tube+) Rectal Exam: deferred - Genitourinary Female genitourinary: Present: deferred - Integumentary Integumentary: warm - Musculoskeletal Musculoskeletal: generalized weakness - Neurologic Neurologic: moves all extremities - Psychiatric Psychiatric: appropriate mood/affect - Labs Lab Results: Laboratory Results - last 24 hr 12/27/17 12/27/17 12/28/17 17:19 22:49 05:41 WBC 4.6 RBC 2.52 L Hgb 7.6 L Hct 22.9 L MCV 91 MCH 30 MCHC 33 RDW 14.8 Plt Count 176 Lymph % (Auto) 9.6 L [place] % (Auto) 14.1 H Eos % (Auto) 0.3 Baso % (Auto) 0.2 Lymph # 0.4 L [place] # 0.6 Eos # 0.0 Baso # 0.0 Seg Neutrophils % 75.8 H Seg Neutrophils # 3.5 POC ABG pH 7.429 POC ABG pCO2 47.2 H POC ABG pO2 60 L POC ABG HCO3 31.3 POC ABG Total CO2 33 POC ABG O2 Sat 91 POC ABG Base Excess 7 FiO2 50 Sodium Potassium Chloride Carbon Dioxide Anion Gap BUN Creatinine Estimated GFR BUN/Creatinine Ratio Glucose Calcium TSH Vancomycin Trough 4.2 L 12/28/17 12/28/17 05:41 05:41 WBC RBC Hgb Hct MCV MCH MCHC RDW Plt Count Lymph % (Auto) [place] % (Auto) Eos % (Auto) Baso % (Auto) Lymph # [place] # Eos # Baso # Seg Neutrophils % Seg Neutrophils # POC ABG pH POC ABG pCO2 POC ABG pO2 POC ABG HCO3 POC ABG Total CO2 POC ABG O2 Sat POC ABG Base Excess FiO2 Sodium 133 L Potassium 2.6 L* D Chloride 92.6 L Carbon Dioxide 31 H Anion Gap 12 BUN 9 Creatinine 0.3 L Estimated GFR > 60 BUN/Creatinine Ratio 30 Glucose 180 H Calcium 8.7 TSH 3.750 Vancomycin Trough
[2017-12-28] MEDS ORDERED: NACL 0.9% 500 ML 500 ML IV ONE (21:33)
[2017-12-29] MEDS: CARDIZEM PO SCH ×4 (00:50→17:44)
[2017-12-29] MEDS: ZOSYN/NS 4.5GM/100ML 4.5 GM/100 ML VIAL IV SCH ×3 (01:28→18:47)
[2017-12-29] MEDS: DILAUDID IV PRN (03:15)
[2017-12-29] MEDS: VANCOMYCIN/NS 1 GM/250 ML 1 GM/250 ML BAG IV SCH ×3 (03:40→21:58)
[2017-12-29 04:15] LABS: BUN/Creatinine Ratio 35; Blood Urea Nitrogen 7 mg/dL (7-17); Calcium 8.4 mg/dL (8.4-10.2); Hemolysis Index 174
[2017-12-29] MEDS: DUONEB *Not for PRN Use IH SCH ×5 (04:32→20:04)
[2017-12-29] MEDS: MS CONTIN ER PO SCH ×3 (05:48→21:59)
[2017-12-29] MEDS: LOVENOX SUB-Q SCH ×2 (05:49→21:58)
[2017-12-29] MEDS: POTASSIUM CHLORIDE FEEDTUBE SCH ×3 (05:50→21:58)
[2017-12-29] MEDS: SODIUM CHLORIDE FLUSH SYRINGE 10 ML IV SCH ×3 (05:51→22:00)
--- NOTE | 2017-12-29 08:58 | Progress Note ---
Assessment and Plan 67-year-old female with recently diagnosed esophageal cancer, COPD/emphysema, currently on chemotherapy, last dose was on Tuesday admitted with: 1) Extensive right middle and lower lobe pneumonia. It seems she did receive GM-CSF post chemotherapy, WBC improved 2.5 -->4.1. Repeat Blood cultures continue to reveal no growth to date. 2) Acute hypoxic respiratory failure secondary to extensive pneumonia on top of underlying COPD: Supplement oxygen as needed. Continue antibiotics as above. 3) Coagulase-negative staph bacteremia: 3 out of 4 bottles positive. Transthoracic echocardiogram revealed mild left ventricular hypertrophy. Sputum culture contaminated. Will continue broad spectrum coverage of IV Zosyn and Vancomycin. 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 5) Severe protein calorie malnutrition: Patient's weight is 36 kg with a BMI of 15.5. Antibiotics will need to be adjusted accordingly. Recs: - continue IV Zosyn, D4 - continue IV Vancomycin, target trough between 10-20 mcg/ml, D3 -Can transition to PO medications when discharged [facility] M: [phone] O:[phone] Subjective Date of service: 12/29/17 Principal diagnosis: esophageal ca Interval history: Patient was sitting up in bed. Patient stated that she was very tired today. Patient did reported 1 loose stool today, denies pain, itching or swelling. Current Antimicrobials Zosyn Vancomycin Objective - Exam Narrative Exam: Constitutional: Alert, but sleepy, cooperative. No acute distress Head, Ears, Nose: Normocephalic, atraumatic. External ears, nose normal Eyes: Conjunctivae/corneas clear. No icterus. No ptosis. Neck: Supple, no meningeal signs Oral: dentition fair, no thrush Cardiovascular: S1, S2 normal. Respiratory: Good air entry, clear to auscultation bilaterally GI: Soft, non-tender; bowel sounds normal. No peritoneal signs. G-tube present. Musculoskeletal: No pedal edema, no cyanosis. Skin: No rash or abscess Hem/Lymphatic: No palpable cervical or supraclavicular nodes. No lymphangitis Psych: Mood ok. Affect normal Neurological: Awake, alert, oriented. No gross abnormality - Constitutional Vitals: Vital Signs Temp Pulse Resp BP Pulse Ox 97.9 F 108 H 18 165/80 96 12/29/17 07:49 12/29/17 07:49 12/29/17 07:49 12/29/17 07:49 12/29/17 07:49 Temperature -Last 24 Hours Temperature 97.9 F Temperature 98.5 F Temperature 98.5 F Temperature 97.8 F Temperature 98.3 F Temperature 98.2 F Temperature 97.4 F - Labs CBC & Chem 7: 12/28/17 05:41 12/29/17 03:31 Labs: Abnormal lab results 12/28/17 12/28/17 12/28/17 Range/Units 03:03 16:02 23:04 Sodium (137-145) mmol/L Potassium 3.3 L D (3.6-5.0) mmol/L Chloride (98-107) mmol/L Creatinine (0.7-1.2) mg/dL Glucose (65-100) mg/dL POC Glucose 116 H (70-105) Crossmatch See Detail 12/29/17 Range/Units 03:31 Sodium 128 L (137-145) mmol/L Potassium (3.6-5.0) mmol/L Chloride 94.0 L (98-107) mmol/L Creatinine 0.2 L (0.7-1.2) mg/dL Glucose 61 L (65-100) mg/dL POC Glucose (70-105) Crossmatch
--- NOTE | 2017-12-29 10:26 | Progress Note ---
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: -down to 128 this AM -cont fluid restriction of 1000 ml per day - will decrease water flushes to 100 cc Q6H - cont sodium bicarb -Goal is to raise serum sodium not more than 8-10 mmol in 24 hours -BMP daily Hypokalemia: -cont KCl 40 meq po or via PEG tube BID -correcting K will help correcting hyponatremia Elevated troponin: -Echocardiogram- LVEF 45-50% -Cardiology onboard Hypertension: -Controlled -On Diltiazem Esophageal cancer: Malnutrition: -S/P first chemotherapy treatment last week Tuesday -Has PEG tube for tube feedings -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 Osteoporosis: -On Alendronate Subjective Date of service: 12/29/17 Principal diagnosis: esophageal ca Interval history: comfortable, stating she is drinking plenty of fluid Objective - Vital Signs Vital signs: Vital Signs - 12hr 12/28/17 12/28/17 12/29/17 23:00 23:44 00:11 Temperature Pulse Rate 93 H Pulse Rate [ Anterior Bilateral Throughout] Pulse Rate [ Anterior] Pulse Rate [ 94 H Apical] Pulse Rate [ 99 H 95 H Posterior Bilateral Throughout] Respiratory 20 Rate Respiratory Rate [Anterior Bilateral Throughout] Respiratory Rate [Anterior] Respiratory 18 18 Rate [Posterior Bilateral Throughout] Blood Pressure O2 Sat by Pulse 98 Oximetry 12/29/17 12/29/17 12/29/17 00:50 02:27 03:15 Temperature 98.5 F Pulse Rate 101 H 101 H Pulse Rate [ Anterior Bilateral Throughout] Pulse Rate [ Anterior] Pulse Rate [ Apical] Pulse Rate [ Posterior Bilateral Throughout] Respiratory 20 21 Rate Respiratory Rate [Anterior Bilateral Throughout] Respiratory Rate [Anterior] Respiratory Rate [Posterior Bilateral Throughout] Blood Pressure 140/78 148/76 O2 Sat by Pulse 94 Oximetry 12/29/17 12/29/17 12/29/17 03:45 04:33 04:56 Temperature Pulse Rate Pulse Rate [ Anterior Bilateral Throughout] Pulse Rate [ Anterior] Pulse Rate [ Apical] Pulse Rate [ 98 H 196 H Posterior Bilateral Throughout] Respiratory 20 Rate Respiratory Rate [Anterior Bilateral Throughout] Respiratory Rate [Anterior] Respiratory 18 16 Rate [Posterior Bilateral Throughout] Blood Pressure O2 Sat by Pulse Oximetry 12/29/17 12/29/17 12/29/17 06:05 07:49 09:35 Temperature 97.9 F Pulse Rate 94 H 108 H Pulse Rate [ 100 H Anterior Bilateral Throughout] Pulse Rate [ 100 H Anterior] Pulse Rate [ Apical] Pulse Rate [ 100 H Posterior Bilateral Throughout] Respiratory 18 Rate Respiratory 18 Rate [Anterior Bilateral Throughout] Respiratory 18 Rate [Anterior] Respiratory 18 Rate [Posterior Bilateral Throughout] Blood Pressure 147/78 165/80 O2 Sat by Pulse 96 Oximetry 12/29/17 12/29/17 09:44 09:51 Temperature Pulse Rate Pulse Rate [ 95 H Anterior Bilateral Throughout] Pulse Rate [ Anterior] Pulse Rate [ Apical] Pulse Rate [ 95 H Posterior Bilateral Throughout] Respiratory Rate Respiratory 20 Rate [Anterior Bilateral Throughout] Respiratory Rate [Anterior] Respiratory 20 Rate [Posterior Bilateral Throughout] Blood Pressure O2 Sat by Pulse 98 Oximetry - General Appearance General appearance: well-developed, cachectic EENT: ATNC, PERRL, mucous membranes moist Neck: no JVD, no carotid bruit Respiratory: Present: Clear to Ascultation. Absent: Rales, Ronchi Cardiology: regular, S1S2 Gastrointestinal: normoactive bowel sounds, no tenderness, distended Integumentary: no rash, warm and dry Neurologic: no focal deficit, no asterixis, alert and oriented x3 Musculoskeletal: other (no edema in BLE) Psychiatric: mood/affect appropriate, cooperative - Lab 12/28/17 05:41 12/29/17 03:31 Most recent lab results Calcium 8.4 mg/dL (8.4-10.2) 12/29/17 03:31 Magnesium 1.70 mg/dL (1.7-2.3) 12/27/17 04:46 Urine Sodium 34 mmol/L 12/27/17 14:23
[2017-12-29] MEDS: CARAFATE PO SCH ×3 (11:19→17:44)
[2017-12-29] MEDS: LIDODERM 5% TD SCH ×2 (11:21→11:47)
--- NOTE | 2017-12-29 12:23 | Hem/Onc Progress Note ---
Assessment and Plan esophageal ca h/o Loss of wt 1. Esophageal cancer. Details of this is not clear. The patient follows Dr. Alicea at [facility]. The patient's diagnosis was done a few weeks ago and the patient had Port-A-Cath placement, esophageal stent and PEG tube placement. The patient does not remember chemotherapy, but it appears the patient received Neulasta patch. At admission, white cell count was high. 2. Ascites. 3. Emaciated. 4. Anemia. This may be chemo related. 5. Admitted with shortness of breath, being treated for pneumonia and sepsis. leukocytosis sec to GCSF and later wbc and ANC was normal h/o loss of wt I will follow the patient during inpatient stay and the patient will follow up with Dr. Alicea at [facility] once discharged. - Patient Problems (1) Esophageal cancer Current Visit: Yes Status: Chronic Subjective Date of service: 12/29/17 Principal diagnosis: esophageal ca Interval history: feeling better - Objective - Constitutional Vitals: Last Vital Signs Temp 97.9 F 12/29/17 07:49 Pulse 100 H 12/29/17 11:53 Resp 18 12/29/17 11:53 BP 165/80 12/29/17 07:49 Pulse Ox 98 12/29/17 09:44 Pain Intensity (0-10): denies any pain General appearance: mild distress (on o2) Performance status: 3-limited selfcare - EENT ENT: clear oral mucosa Lymph node exam: negative cervical, negative supraclavicular - Respiratory Respiratory: bilateral: CTA (anteriorly) - Cardiovascular Heart Sounds: Present: S1 & S2 Extremities: No edema - Gastrointestinal General gastrointestinal: Present: soft, distended (mild) Rectal Exam: deferred - Genitourinary Female genitourinary: Present: deferred - Integumentary Integumentary: warm - Musculoskeletal Musculoskeletal: generalized weakness - Neurologic Neurologic: moves all extremities - Labs Lab Results: Laboratory Results - last 24 hr 12/28/17 12/28/17 12/28/17 03:03 16:02 23:04 Sodium Potassium 3.3 L D Chloride Carbon Dioxide Anion Gap BUN Creatinine Estimated GFR BUN/Creatinine Ratio Glucose POC Glucose 116 H Calcium Blood Type A POSITIVE Antibody Screen Negative Crossmatch See Detail 12/29/17 03:31 Sodium 128 L Potassium 4.6 D Chloride 94.0 L Carbon Dioxide 25 Anion Gap 14 BUN 7 Creatinine 0.2 L Estimated GFR > 60 BUN/Creatinine Ratio 35 Glucose 61 L POC Glucose Calcium 8.4 Blood Type Antibody Screen Crossmatch
[2017-12-29] MEDS ORDERED: SIMPLE SYRUP FEEDTUBE PRN ×2 (15:16)
[2017-12-29] MEDS ORDERED: PANCREAZE DR 10,500 UNIT FEEDTUBE PRN (15:16)
[2017-12-29] MEDS ORDERED: SODIUM BICARBONATE FEEDTUBE PRN (15:16)
--- NOTE | 2017-12-29 15:52 | Progress Note ---
Hospitalist Physical - Constitutional Vitals: Temp Pulse Resp BP Pulse Ox 97.9 F 102 H 18 147/73 97 12/29/17 13:37 12/29/17 13:37 12/29/17 13:37 12/29/17 13:37 12/29/17 13:37 General appearance: Present: cachectic Results - Labs CBC & Chem 7: 12/28/17 05:41 12/29/17 03:31 Labs: Laboratory Last Values WBC 4.6 K/mm3 (4.5-11.0) 12/28/17 05:41 RBC 2.52 M/mm3 (3.65-5.03) L 12/28/17 05:41 Hgb 7.6 gm/dl (10.1-14.3) L 12/28/17 05:41 Hct 22.9 % (30.3-42.9) L 12/28/17 05:41 MCV 91 fl (79-97) 12/28/17 05:41 MCH 30 pg (28-32) 12/28/17 05:41 MCHC 33 % (30-34) 12/28/17 05:41 RDW 14.8 % (13.2-15.2) 12/28/17 05:41 Plt Count 176 K/mm3 (140-440) 12/28/17 05:41 Lymph % (Auto) 9.6 % (13.4-35.0) L 12/28/17 05:41 [place] % (Auto) 14.1 % (0.0-7.3) H 12/28/17 05:41 Eos % (Auto) 0.3 % (0.0-4.3) 12/28/17 05:41 Baso % (Auto) 0.2 % (0.0-1.8) 12/28/17 05:41 Lymph # 0.4 K/mm3 (1.2-5.4) L 12/28/17 05:41 [place] # 0.6 K/mm3 (0.0-0.8) 12/28/17 05:41 Eos # 0.0 K/mm3 (0.0-0.4) 12/28/17 05:41 Baso # 0.0 K/mm3 (0.0-0.1) 12/28/17 05:41 Add Manual Diff Complete 12/24/17 06:58 Total Counted 100 12/24/17 06:58 Seg Neutrophils % 75.8 % (40.0-70.0) H 12/28/17 05:41 Seg Neuts % (Manual) 100.0 % (40.0-70.0) H 12/24/17 06:58 Band Neutrophils % 0 % 12/24/17 06:58 Lymphocytes % (Manual) 0 % (13.4-35.0) L 12/24/17 06:58 Reactive Lymphs % (Man) 0 % 12/24/17 06:58 Monocytes % (Manual) 0 % (0.0-7.3) 12/24/17 06:58 Eosinophils % (Manual) 0 % (0.0-4.3) 12/24/17 06:58 Basophils % (Manual) 0 % (0.0-1.8) 12/24/17 06:58 Metamyelocytes % 0 % 12/24/17 06:58 Myelocytes % 0 % 12/24/17 06:58 Promyelocytes % 0 % 12/24/17 06:58 Blast Cells % 0 % 12/24/17 06:58 Nucleated RBC % Not Reportable 12/24/17 06:58 Seg Neutrophils # 3.5 K/mm3 (1.8-7.7) 12/28/17 05:41 Seg Neutrophils # Man 23.3 K/mm3 (1.8-7.7) H 12/24/17 06:58 Band Neutrophils # 0.0 K/mm3 12/24/17 06:58 Lymphocytes # (Manual) 0.0 K/mm3 (1.2-5.4) L 12/24/17 06:58 Abs React Lymphs (Man) 0.0 K/mm3 12/24/17 06:58 Monocytes # (Manual) 0.0 K/mm3 (0.0-0.8) 12/24/17 06:58 Eosinophils # (Manual) 0.0 K/mm3 (0.0-0.4) 12/24/17 06:58 Basophils # (Manual) 0.0 K/mm3 (0.0-0.1) 12/24/17 06:58 Metamyelocytes # 0.0 K/mm3 12/24/17 06:58 Myelocytes # 0.0 K/mm3 12/24/17 06:58 Promyelocytes # 0.0 K/mm3 12/24/17 06:58 Blast Cells # 0.0 K/mm3 12/24/17 06:58 WBC Morphology Not Reportable 12/24/17 06:58 Hypersegmented Neuts Not Reportable 12/24/17 06:58 Hyposegmented Neuts Not Reportable 12/24/17 06:58 Hypogranular Neuts Not Reportable 12/24/17 06:58 Smudge Cells Not Reportable 12/24/17 06:58 Toxic Granulation Not Reportable 12/24/17 06:58 Toxic Vacuolation Not Reportable 12/24/17 06:58 Dohle Bodies Not Reportable 12/24/17 06:58 Pelger-Huet Anomaly Not Reportable 12/24/17 06:58 Mc Rods Not Reportable 12/24/17 06:58 Platelet Estimate Consistent w auto 12/24/17 06:58 Clumped Platelets Not Reportable 12/24/17 06:58 Plt Clumps, EDTA Not Reportable 12/24/17 06:58 Large Platelets Not Reportable 12/24/17 06:58 Giant Platelets Not Reportable 12/24/17 06:58 Platelet Satelliting Not Reportable 12/24/17 06:58 Plt Morphology Comment Not Reportable 12/24/17 06:58 RBC Morphology Normal 12/24/17 06:58 Dimorphic RBCs Not Reportable 12/24/17 06:58 Polychromasia Not Reportable 12/24/17 06:58 Hypochromasia Not Reportable 12/24/17 06:58 Poikilocytosis Not Reportable 12/24/17 06:58 Anisocytosis Not Reportable 12/24/17 06:58 Microcytosis Not Reportable 12/24/17 06:58 Macrocytosis Not Reportable 12/24/17 06:58 Spherocytes Not Reportable 12/24/17 06:58 Pappenheimer Bodies Not Reportable 12/24/17 06:58 Sickle Cells Not Reportable 12/24/17 06:58 Target Cells Not Reportable 12/24/17 06:58 Tear Drop Cells Not Reportable 12/24/17 06:58 Ovalocytes Not Reportable 12/24/17 06:58 Helmet Cells Not Reportable 12/24/17 06:58 Mcfarland-Schulter Bodies Not Reportable 12/24/17 06:58 Owings Rings Not Reportable 12/24/17 06:58 Sanibel Cells Not Reportable 12/24/17 06:58 Bite Cells Not Reportable 12/24/17 06:58 Crenated Cell Not Reportable 12/24/17 06:58 Elliptocytes Not Reportable 12/24/17 06:58 Acanthocytes (Spur) Not Reportable 12/24/17 06:58 Rouleaux Not Reportable 12/24/17 06:58 Hemoglobin C Crystals Not Reportable 12/24/17 06:58 Schistocytes Not Reportable 12/24/17 06:58 Malaria parasites Not Reportable 12/24/17 06:58 Amtt Bodies Not Reportable 12/24/17 06:58 Hem Pathologist Commnt No 12/24/17 06:58 PT 13.8 Sec. (12.2-14.9) 12/23/17 20:03 INR 1.01 (0.87-1.13) 12/23/17 20:03 APTT 31.3 Sec. (24.2-36.6) 12/23/17 20:03 POC ABG pH 7.429 (7.35-7.45) 12/27/17 22:49 POC ABG pCO2 47.2 (35-45) H 12/27/17 22:49 POC ABG pO2 60 (80-105) L 12/27/17 22:49 POC ABG HCO3 31.3 12/27/17 22:49 POC ABG Total CO2 33 12/27/17 22:49 POC ABG O2 Sat 91 12/27/17 22:49 POC ABG Base Excess 7 12/27/17 22:49 FiO2 50 % 12/27/17 22:49 Sodium 128 mmol/L (137-145) L 12/29/17 03:31 Potassium 4.6 mmol/L (3.6-5.0) D 12/29/17 03:31 Chloride 94.0 mmol/L (98-107) L 12/29/17 03:31 Carbon Dioxide 25 mmol/L (22-30) 12/29/17 03:31 Anion Gap 14 mmol/L 12/29/17 03:31 BUN 7 mg/dL (7-17) 12/29/17 03:31 Creatinine 0.2 mg/dL (0.7-1.2) L 12/29/17 03:31 Estimated GFR > 60 ml/min 12/29/17 03:31 BUN/Creatinine Ratio 35 % 12/29/17 03:31 Glucose 61 mg/dL (65-100) L 12/29/17 03:31 POC Glucose 116 (70-105) H 12/28/17 23:04 Calcium 8.4 mg/dL (8.4-10.2) 12/29/17 03:31 Magnesium 1.70 mg/dL (1.7-2.3) 12/27/17 04:46 Total Bilirubin 0.40 mg/dL (0.1-1.2) 12/23/17 20:03 AST 16 units/L (5-40) 12/23/17 20:03 ALT 28 units/L (7-56) 12/23/17 20:03 Alkaline Phosphatase 117 units/L (35-129) 12/23/17 20:03 Total Creatine Kinase 23 units/L (30-135) L 12/24/17 06:58 CK-MB (CK-2) 3.7 ng/mL (0.0-4.0) 12/24/17 06:58 CK-MB (CK-2) Rel Index 16.0 (0-4) H 12/24/17 06:58 Troponin T 0.049 ng/mL (0.00-0.029) H D 12/24/17 06:58 NT-Pro-B Natriuret Pep 819.6 pg/mL (0-900) 12/23/17 20:03 Total Protein 5.2 g/dL (6.3-8.2) L 12/23/17 20:03 Albumin 2.4 g/dL (3.9-5) L 12/23/17 20:03 Albumin/Globulin Ratio 0.9 % 12/23/17 20:03 Triglycerides 83 mg/dL (2-149) 12/23/17 20:03 Cholesterol 92 mg/dL (50-199) 12/23/17 20:03 LDL Cholesterol Direct 52 mg/dL (50-130) 12/23/17 20:03 HDL Cholesterol 27 mg/dL (40-59) L 12/23/17 20:03 Cholesterol/HDL Ratio 3.40 % 12/23/17 20:03 TSH 3.750 mlU/mL (0.270-4.200) 12/28/17 05:41 Urine Osmolality 452 Mosm/kg 12/27/17 14:23 Urine Sodium 34 mmol/L 12/27/17 14:23 Vancomycin Trough 4.2 ug/mL (5.0-20.0) L 12/27/17 17:19 Blood Type A POSITIVE 12/28/17 03:03 Antibody Screen Negative 12/28/17 03:03 Crossmatch See Detail 12/28/17 03:03
[2017-12-30] MEDS: DUONEB *Not for PRN Use IH SCH ×5 (00:22→16:24)
[2017-12-30] MEDS: CARDIZEM PO SCH ×3 (00:50→12:01)
[2017-12-30] MEDS: ZOSYN/NS 4.5GM/100ML 4.5 GM/100 ML VIAL IV SCH ×2 (00:50→08:39)
[2017-12-30] MEDS: CARAFATE PO SCH ×2 (07:38→12:00)
--- NOTE | 2017-12-30 08:00 | Progress Note ---
Assessment and Plan 67-year-old female with recently diagnosed esophageal cancer, COPD/emphysema, currently on chemotherapy, last dose was on Tuesday admitted with: 1) Extensive right middle and lower lobe pneumonia. It seems she did receive GM-CSF post chemotherapy, WBC improved 2.5 -->4.1. Repeat Blood cultures continue to reveal no growth to date. 2) Acute hypoxic respiratory failure secondary to extensive pneumonia on top of underlying COPD: Supplement oxygen as needed. Continue antibiotics as above. 3) Coagulase-negative staph bacteremia: 3 out of 4 bottles positive. Transthoracic echocardiogram revealed mild left ventricular hypertrophy. Sputum culture contaminated. Will continue with Zosyn while inpatient. Will transition to Augmentin po when discharged. 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 5) Severe protein calorie malnutrition: Patient's weight is 36 kg with a BMI of 15.5. Antibiotics will need to be adjusted accordingly. Recs: - continue IV Zosyn while inpatient - discontinue Vancomycin -Can transition to PO medications when discharged, PO Augmentin 875mg BID for 5 days ID is signing off. MOHINDER [facility] M: [id number] O:[phone] Subjective Date of service: 12/30/17 Principal diagnosis: esophageal ca Interval history: Patient was sitting up in bed reading. Patient stated that she was feeling much better today and was ready to go home. Patient denies any discomfort at this time. Current Antimicrobials Zosyn Previous Antimicrobials Vancomycin Objective - Exam Narrative Exam: Constitutional: Alert, cooperative. No acute distress Head, Ears, Nose: Normocephalic, atraumatic. External ears, nose normal Eyes: Conjunctivae/corneas clear. No icterus. No ptosis. Neck: Supple, no meningeal signs Oral: dentition fair, no thrush Cardiovascular: S1, S2 normal. Respiratory: Good air entry, fine crackles throughout the bases. GI: Soft, non-tender; bowel sounds normal. No peritoneal signs. G-tube present. Musculoskeletal: No pedal edema, no cyanosis. Skin: No rash or abscess Hem/Lymphatic: No palpable cervical or supraclavicular nodes. No lymphangitis Psych: Mood ok. Affect normal Neurological: Awake, alert, oriented. No gross abnormality - Constitutional Vitals: Vital Signs Temp Pulse Resp BP Pulse Ox 98.0 F 96 H 20 138/64 99 12/30/17 01:24 12/30/17 06:30 12/30/17 04:10 12/30/17 06:30 12/30/17 01:24 Temperature -Last 24 Hours Temperature 98.0 F Temperature 98.2 F Temperature 97.9 F - Labs CBC & Chem 7: 12/28/17 05:41 12/29/17 03:31
--- NOTE | 2017-12-30 08:11 | Hem/Onc Progress Note ---
Assessment and Plan esophageal ca h/o Loss of wt 1. Esophageal cancer. Details of this is not clear. The patient follows Dr. Alicea at [facility]. The patient's diagnosis was done a few weeks ago and the patient had Port-A-Cath placement, esophageal stent and PEG tube placement. The patient does not remember chemotherapy, but it appears the patient received Neulasta patch. At admission, white cell count was high. 2. Ascites. 3. Emaciated. 4. Anemia. This may be chemo related. 5. Admitted with shortness of breath, being treated for pneumonia and sepsis. leukocytosis sec to GCSF and later wbc and ANC was normal h/o loss of wt barium swallow test done 12/27 - no Trach esophageal fistula I will follow the patient during inpatient stay and the patient will follow up with Dr. Alicea at [facility] once discharged. - Patient Problems (1) Esophageal cancer Current Visit: Yes Status: Chronic Subjective Date of service: 12/30/17 Principal diagnosis: esophageal ca Interval history: feeling better - pt says was able to sit on bedside commode on 12/29 Objective - Constitutional Vitals: Last Vital Signs Temp 98.0 F 12/30/17 01:24 Pulse 96 H 12/30/17 06:30 Resp 20 12/30/17 04:10 BP 138/64 12/30/17 06:30 Pulse Ox 99 12/30/17 01:24 Pain Intensity (0-10): denies any pain General appearance: no acute distress, cachectic Performance status: 3-limited selfcare - EENT ENT: clear oral mucosa Lymph node exam: negative cervical, negative supraclavicular - Respiratory Respiratory effort: Positive: normal Respiratory: bilateral: CTA (anteriorly) - Cardiovascular Heart Sounds: Present: S1 & S2 Extremities: No edema - Gastrointestinal General gastrointestinal: Present: soft, other (feeding tube+) Rectal Exam: deferred - Genitourinary Female genitourinary: Present: deferred - Integumentary Integumentary: warm - Musculoskeletal Musculoskeletal: strength equal bilaterally - Neurologic Neurologic: moves all extremities - Psychiatric Psychiatric: appropriate mood/affect
--- NOTE | 2017-12-30 09:25 | Discharge Summary ---
Providers - Providers Date of Admission: 12/23/17 22:46 Attending physician: CALLIE PRECIADO MD 12/24/17 09:56 Consult to Physician [CONS] Routine Comment: Consulting Provider: EVELIO ROCHA Physician Instructions: Reason For Exam: evaluate for ascites, esophageal cancer 12/24/17 09:59 Consult to Dietitian/Nutrition [CONS] Routine Physician Instructions: Reason For Exam: Reason for Consult: Write/Manage Tube Feeding 12/26/17 07:57 Consult to Physician [CONS] Routine Comment: Consulting Provider: JUAN MIGUEL NARAYAN Physician Instructions: Reason For Exam: GPC bacteremia, aspiration pneumonia w/ cancer 12/26/17 08:00 Consult to Case Management [CONS] Routine Services Needed at Discharge: [facility] Notified:: porter sample case Additional Physician Instructions: 12/26/17 18:21 Consult to Physician [CONS] Routine Comment: Consulting Provider: SALO MCFARLANE Physician Instructions: Reason For Exam: advance esophageal cancer 12/26/17 18:22 Consult to Physician [CONS] Routine Comment: Consulting Provider: ROSA DONOVAN Physician Instructions: Reason For Exam: severe hyponatremia 12/28/17 21:30 Physical Therapy Evaluation and Treat [CONS] Routine Comment: Reason For Exam: ataxia 12/29/17 11:40 Consult to Dietitian/Nutrition [CONS] Routine Physician Instructions: Assess nutrtn needs, initiate, modify, manage TF Reason For Exam: Reason for Consult: Write/Manage Tube Feeding Reason for Consult: Write/Manage Tube Feeding Primary care physician: RECONSTRUCTIVE DENTIST Hospitalization Condition: Serious Disposition: DC-50 TO HOSPICE (HOME) Time spent for discharge: 33 minutes Core Measure Documentation - Palliative Care Palliative Care/ Comfort Measures: Not Applicable Exam - Constitutional Vitals: Temp Pulse Resp BP Pulse Ox 97.8 F 94 H 22 142/64 99 12/30/17 07:57 12/30/17 07:57 12/30/17 07:57 12/30/17 07:57 12/30/17 07:57 Plan Follow up with: PRIMARY CAREMD [Primary Care Provider] - 3-5 Days Prescriptions: dilTIAZem HCl [Diltiazem 24Hr Cd] 120 mg PO DAILY #30 cap.er.24h HYDROcodone/ACETAMINOPHEN [Hydrocodone-Acetamin 10-325 mg] 1 each PO PRN #30 tablet Morphine ER [Ms Contin ER] 30 mg PO Q12HR #60 tablet
[2017-12-30] MEDS: POTASSIUM CHLORIDE FEEDTUBE SCH (09:33)
[2017-12-30] MEDS: MS CONTIN ER PO SCH (09:34)
[2017-12-30] MEDS: SODIUM CHLORIDE FLUSH SYRINGE 10 ML IV SCH (09:36)
[2017-12-30] MEDS: LIDODERM 5% TD SCH (09:37)
--- NOTE | 2017-12-30 09:50 | Progress Note ---
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: -no labs this AM -cont fluid restriction of 1000 ml per day - flushes to 100 cc Q6H - cont sodium bicarb -Goal is to raise serum sodium not more than 8-10 mmol in 24 hours -BMP daily Hypokalemia: -cont KCl 40 meq po or via PEG tube BID Elevated troponin: -Echocardiogram- LVEF 45-50% -Cardiology onboard Hypertension: -Controlled -On Diltiazem Esophageal cancer: Malnutrition: -S/P first chemotherapy treatment last week Tuesday -Has PEG tube for tube feedings -Pharmacy Sales Assistant onboard Osteoporosis: -On Alendronate Subjective Date of service: 12/30/17 Principal diagnosis: esophageal ca Interval history: denies acute issues Objective - Vital Signs Vital signs: Vital Signs - 12hr 12/29/17 12/29/17 12/29/17 21:59 22:00 22:59 Temperature Pulse Rate 97 H Pulse Rate [ Anterior Bilateral Throughout] Pulse Rate [ 96 H Apical] Respiratory 20 22 20 Rate Respiratory Rate [Anterior Bilateral Throughout] Blood Pressure O2 Sat by Pulse 99 Oximetry 12/30/17 12/30/17 12/30/17 00:00 00:19 00:50 Temperature Pulse Rate 101 H Pulse Rate [ 98 H 95 H Anterior Bilateral Throughout] Pulse Rate [ Apical] Respiratory Rate Respiratory 20 20 Rate [Anterior Bilateral Throughout] Blood Pressure 140/60 O2 Sat by Pulse Oximetry 12/30/17 12/30/17 12/30/17 01:24 04:00 04:10 Temperature 98.0 F Pulse Rate 94 H Pulse Rate [ 96 H 96 H Anterior Bilateral Throughout] Pulse Rate [ Apical] Respiratory 18 Rate Respiratory 20 20 Rate [Anterior Bilateral Throughout] Blood Pressure 134/61 O2 Sat by Pulse 99 Oximetry 12/30/17 12/30/17 06:30 07:57 Temperature 97.8 F Pulse Rate 96 H 94 H Pulse Rate [ Anterior Bilateral Throughout] Pulse Rate [ Apical] Respiratory 22 Rate Respiratory Rate [Anterior Bilateral Throughout] Blood Pressure 138/64 142/64 O2 Sat by Pulse 99 Oximetry - General Appearance General appearance: well-developed, cachectic EENT: ATNC, PERRL, mucous membranes dry Neck: no JVD Respiratory: Present: Clear to Ascultation. Absent: Rales, Ronchi Cardiology: regular, S1S2 Gastrointestinal: normoactive bowel sounds, no tenderness, distended Integumentary: no rash, warm and dry Neurologic: no focal deficit, no asterixis, alert and oriented x3 Musculoskeletal: other (no edema in BLE) Psychiatric: mood/affect appropriate, cooperative - Lab 12/28/17 05:41 12/29/17 03:31 Most recent lab results Calcium 8.4 mg/dL (8.4-10.2) 12/29/17 03:31 Magnesium 1.70 mg/dL (1.7-2.3) 12/27/17 04:46 Urine Sodium 34 mmol/L 12/27/17 14:23
[2017-12-30 15:10] VITALS: BP 138/67
[2017-12-30] MEDS ORDERED: SIMPLE SYRUP FEEDTUBE PRN ×2 (15:44)
[2017-12-30] MEDS ORDERED: PANCREAZE DR 10,500 UNIT FEEDTUBE PRN (15:44)
[2017-12-30] MEDS ORDERED: SODIUM BICARBONATE FEEDTUBE PRN (15:44)
[2018-01-02] MEDS ORDERED: FOSAMAX PO SCH (10:00)
== END 2017-12-30 17:00 | disposition home health service (06) | DRG 871 ==
LOC: ED 19:05 → 4A 22:46 → 2B-ACE 12-28 22:41
PROVIDERS: ADMIT Internal Medicine; ATTEND Internal Medicine
DX: A41.9 Sepsis, unspecified organism (principal); J69.0 Pneumonitis due to inhalation of food and vomit; J96.01 Acute respiratory failure with hypoxia; E43 Unspecified severe protein-calorie malnutrition; E41 Nutritional marasmus; E22.2 Syndrome of inappropriate secretion of antidiuretic hormone; J44.0 Chronic obstructive pulmonary disease with (acute) lower respiratory infection; C15.9 Malignant neoplasm of esophagus, unspecified; R18.8 Other ascites; I50.22 Chronic systolic (congestive) heart failure; J44.1 Chronic obstructive pulmonary disease with (acute) exacerbation; E87.6 Hypokalemia; M81.0 Age-related osteoporosis without current pathological fracture; D64.9 Anemia, unspecified; K21.9 Gastro-esophageal reflux disease without esophagitis; I11.0 Hypertensive heart disease with heart failure; M19.90 Unspecified osteoarthritis, unspecified site; Z93.1 Gastrostomy status; Z68.20 Body mass index [BMI] 20.0-20.9, adult; Z79.899 Other long term (current) drug therapy; Z82.49 Family history of ischemic heart disease and other diseases of the circulatory system
CPT/HCPCS: 36415; 71045; 74176; 74220; 80048; 80053; 80061; 80202; 82550; 82553; 82803; 82962; 83735; 83880; 83935; 84132; 84300; 84443; 84484; 85007; 85025; 85027; 85610; 85730; 86850; 86900; 86901; 86920; 87040; 87076; 87186; 87205; 93005; 93010; 93306; 94640; 94644; 94760; 96365; 96366; G8978-GP; G8979-GP; J1170; J1650; J1940; J1956; J2543; J3370; J7030; Q9963